=== PATIENT | male | born 1955 | race Caucasian/White ===

== ENCOUNTER 2023-06-20 14:07 | Outpatient (AMB) | payer OTHER, SELFPAY ==
--- NOTE | 2023-06-20 14:20 | MHC.PC.OV ---
Vital Signs 06/20/23 14:22 Height 5 ft 6 in Weight 183 lb 2 oz BMI 29.6 BP 160/78 H Blood Pressure Location Rt brachial Position Sitting Pulse 71 Pulse Source Pulse Oximeter Pulse Oximetry (%) 98 Oxygen Delivery Method Room Air Intake Visit Reasons: NPV-medication Allergies No Known Allergies [No Known Allergies*] Allergy (Unverified 06/20/23 14:24) Medication List - Last Reconciled 06/20/23 [facility] amlodipine-benazepril 5-20 mg 1 cap PO DAILY atorvastatin 20 mg PO BEDTIME elderberry fruit mg PO hydrochlorothiazide 12.5 mg PO DAILY metoprolol succinate ER 25 mg PO DAILY 30 days Tobacco use date assessed: 06/20/23 Fall risk assessment: No Falls in past year Last assessed Fall Risk: 06/20/23 Dental Screening Dental Screen Date: 06/20/23 Did you have a dental visit in the last 12 months?: No Did you have a dental problem in the last 6 months where you did not have access to dental care?: No Was dental information given to patient?: No HPI NPV-medication HPI Details Pt is here to establish care. HTN: Blood pressure is managed with amlodipine-benazepril 5-20mg and hydrochlorothiazide 12.5mg. Pt reports that his blood pressure at home is in the 140s-160s/80s. Will add metoprolol 25mg. Dyslipidemia: On atorvastatin 20mg. Will order labs. ? inferior infarct on EKG. Will order echo and stress test. Denies chest pain, shortness of breath, headache, dizziness, and blurred vision. [facility] Medical History (Updated 06/20/23 @ 15:06 by DAGOBERTO Ch-FIFI) Dyslipidemia Social History Housing: House Patient Tobacco Use Status: Never used Tobacco e-Cigarette/Vaping Use: Never Used Second Hand Smoke Exposure: Yes service: No Current occupational status: employed Current occupation: [employer] Current occupational exposures/hazards: Yes Cognitive needs: No Hearing needs: No Vision needs: No Questionnaire PHQ-9 Over the last 2 weeks, how often have you been bothered by any of the following problems? 1. Little interest or pleasure in doing things: not at all 2. Feeling down, depressed, or hopeless: not at all 3. Trouble falling or staying asleep, or sleeping too much: not at all 4. Feeling tired or having little energy: not at all 5. Poor appetite or overeating: not at all 6. Feeling bad about yourself - or that you are a failure or have let yourself or your family down: not at all 7. Trouble concentrating on things, such as reading the newspaper or watching television: not at all 8. Moving or speaking so slowly that other people could have noticed. Or the opposite - being so fidgety or restless that you have been moving around a lot more than usual: not at all 9. Thoughts that you would be better off or of hurting yourself in some way: not at all Total score: 0 Source: Developed by Drs. John Major, Sue Villagomez, Sang Barry and colleagues, with an educational lorena from [employer] Thrive Questionnaire Date Thrive assessed: 06/20/23 I am a: Patient What is your living situation today?: I have a steady place to live Within the past 12 months, did the food you bought not last and you didn't have the money to get more?: Never true Within the past 12 months, did you worry whether your food would run out before you got money to buy more?: Never true Do you have trouble paying for medicines?: No Do you have trouble getting transportation to medical appointments?: No Do you have trouble paying your heating and electricity bill?: No Do you have trouble taking care of your child, family member or friend?: No Do you have trouble with day-to-day activities such as bathing, preparing meals, shopping, managing finances, etc.?: No Are you currently unemployed and looking for a job?: No Are you interested in more education?: No AUDIT C Alcohol Use Questionnaire (AUDIT-C) 1. How often do you have a drink containing alcohol?: Never Total Score: 0 JAY-7 AMB Questionnaire JAY-7 Date JAY - 7 assessed: 06/20/23 Feeling nervous, anxious, or on edge: 0 = Not at all Not being able to stop or control worryin = Not at all Worrying too much about different things: 0 = Not at all Trouble relaxin = Not at all Being so restless that it is hard to sit still: 0 = Not at all Becoming easily annoyed or irritable: 0 = Not at all Feeling afraid as if something awful might happen: 0 = Not at all Total JAY-7 score (0-4 normal; 5-9 mild; 10-14 moderate; 15-21 severe): 0 Source: Developed by Drs. John Major, Sue Villagomez, Sang Barry and colleagues, with an educational lorena from [employer] Review of Systems Const Reports as per HPI Physical exam (Primary Care) Vital Signs: Last Vital Signs Pulse 71 06/20/23 14:22 BP 160/78 H 06/20/23 14:22 Pulse Ox 98 06/20/23 14:22 Oxygen Delivery Method Room Air 06/20/23 14:22 BMI result Body Mass Index 29.6 Tobacco/Smoking Status: Tobacco use Status Tobacco use date assessed 06/20/23 06/20/23 14:31 Patient Tobacco Use Status Never used Tobacco 06/20/23 14:31 e-Cigarette/Vaping Use Never Used 06/20/23 14:31 PHQ-9: PHQ-9 Score PHQ-9: Total score 0 06/20/23 14:43 Thrive Assessment: Date of Thrive Assessment Date Thrive assessed 06/20/23 06/20/23 14:37 Const General: cooperative Orientation/consciousness: patient oriented x3 Resp Effort & Inspection: normal respiratory effort Auscultation: clear to auscultation bilaterally Cardio Rate: regular rate Rhythm: regular rhythm Heart sounds: S1 normal heart sound present and S2 normal heart sound present Neuro General: patient oriented x3 Extrem Right lower extremity: no edema Left lower extremity: no edema Psych Appearance: grossly normal Mental Status: mental status grossly normal Speech and movement: Normal speech and movement present Affect: normal affect Attitude: cooperative Thought process: Normal thought process present Thought content: Normal thought content present Insight: Good insight present (Psych) Judgement: Good judgement present (Psych) Assessment and Plan Assessment & Plan (1) HTN (hypertension): Code(s): I10 - Essential (primary) hypertension Plan: Starting metoprolol, labs ordered (2) Dyslipidemia: Code(s): E78.5 - Hyperlipidemia, unspecified Plan: Labs ordered (3) Abnormal EKG: Code(s): R94.31 - Abnormal electrocardiogram [ECG] [EKG] Plan The patient agreed to the use of a medical health researcher for this encounter. Scribed for [facility] [place] by Mini Yung medical health researcher, on 06/20/2023 at 14:40 EST Orders: Orders Complete Blood Count Auto Diff Today E78.5 - Hyperlipidemia, unspecified, I10 - Essential (primary) hypertension TSH reflex Free T4 Today E78.5 - Hyperlipidemia, unspecified, I10 - Essential (primary) hypertension Lipid Panel Today E78.5 - Hyperlipidemia, unspecified, I10 - Essential (primary) hypertension CA echo transthoracic complete Today R94.31 - Abnormal electrocardiogram [ECG] [EKG] CA stress test Today E78.5 - Hyperlipidemia, unspecified, I10 - Essential (primary) hypertension, R94.31 - Abnormal electrocardiogram [ECG] [EKG] Comprehensive [place]. Panel Fast Today E78.5 - Hyperlipidemia, unspecified, I10 - Essential (primary) hypertension UA CC w/rflx Micro + Cult Today E78.5 - Hyperlipidemia, unspecified, I10 - Essential (primary) hypertension NM cardiolite stress test Today E78.5 - Hyperlipidemia, unspecified, I10 - Essential (primary) hypertension, R94.31 - Abnormal electrocardiogram [ECG] [EKG] Medications: New metoprolol succinate ER 25 mg PO DAILY 30 tabs 3RF 30 days Coding Level of Care Code New Pt Level 3 (78848) Diagnoses HTN (hypertension) I10 Dyslipidemia E78.5 Abnormal EKG R94.31
[2023-06-20 14:22] VITALS: BP 160/78; PULSE 71; O2SAT 98; BMI 29.6
== END 2023-06-20 16:44 | disposition home or self-care (01) ==
PROVIDERS: PCP Internal Medicine; Visit Provider Nurse Practitioner Family
DX: I10 Essential (primary) hypertension (principal); E78.5 Hyperlipidemia, unspecified; R94.31 Abnormal electrocardiogram [ECG] [EKG]
CPT/HCPCS: 99203

== ENCOUNTER 2023-06-29 08:04 | Outpatient (REF) | payer MEDICARE, SELFPAY ==
[2023-06-29 11:25] LABS: MANUAL DIFF FLAG NO
[2023-06-29 11:38] LABS: Appearance Urine Clear; Color Urine Yellow; Glucose Urine UA Negative (Negative); Leukocyte Esterase Urine Negative (Negative); Nitrite Urine Negative (Negative); PH 6.5 (5.0-9.0); Urine Blood Negative (Negative); Urine Ketones Negative (Negative); Urine Protein Negative (Neg-Trace)
[2023-06-29 11:45] LABS: Basophils Percent Auto 0.5 % (0-2); Eosinophils Absolute Auto 0.4 X10*3/uL (0.0-0.4); Eosinophils Percent Auto 5.9 % (0-4); Hematocrit 39.5 % (42.0-52.0); Hemoglobin 13.4 g/dl (14.0-18.0); Imm Gran Abs Auto 0.01 X10*3/uL (0.00-0.03); Imm Gran Pct Auto 0.2 % (0.0-0.4); Lymphocytes Absolute Auto 2.4 X10*3/uL (1.2-4.9); Lymphocytes Percent Auto 37.8 % (20-40); Mean Corpuscular HGB Conc 33.9 g/dl (31.0-36.0); Mean Corpuscular Hemoglobin 30.7 pg (27.0-33.0); Mean Corpuscular Volume 90.4 fL (80.0-98.0); Mean Platelet Volume 10.3 fL (9.4-12.4); Monocytes Absolute Auto 0.5 X10*3/uL (0.1-1.2); Monocytes Percent Auto 7.4 % (2-11); Neutrophils Percent Auto 48.2 % (45-73); Platelet Count 214 X10*3/uL (160-400); Red Blood Count 4.37 X10*6/uL (4.60-5.80); Red Cell Distribution Width 13.8 % (11.0-16.0); White Blood Count 6.2 X10*3/uL (4.8-10.8)
[2023-06-29 11:54] LABS: Alanine Aminotransferase 25 U/L (0-40); Albumin Level 4.4 g/dL (3.5-5.0); Alkaline Phosphatase 79 U/L (39-117); Anion Gap 14 (12-20); Aspartate Amino Transferase 21 U/L (5-37); Bilirubin Total 0.7 mg/dL (0.0-1.0); Blood Urea Nitrogen 16 mg/dL (9-16); Calcium 10.1 mg/dL (8.4-10.2); Carbon Dioxide 24 mmol/L (22-29); Chloride 105 mmol/L (96-108); Cholesterol 126 mg/dL (<200); Estimated Glomerular Filt Rate > 60; Glucose Fasting 106 mg/dL (60-99); HDL Cholesterol 29 mg/dL (>40); LDL Cholesterol Calculated 80 mg/dL (<100); Potassium 3.3 mmol/L (3.3-5.1); Sodium 140 mmol/L (135-145); Total Protein 7.2 g/dL (6.5-8.0); Triglycerides 87 mg/dL (<150)
[2023-06-29 12:23] LABS: TSH reflex Free T4 1.14 uIU/mL (0.32-4.0)
== END 2023-06-29 08:05 | disposition home or self-care (01) ==
LOC: HO.HMGCLDS 08:04
PROVIDERS: PCP Nurse Practitioner Family; Visit Provider Nurse Practitioner Family
DX: I10 Essential (primary) hypertension (principal); E78.5 Hyperlipidemia, unspecified
CPT/HCPCS: 36415; 80053; 80061; 81003; 84443; 85025

== ENCOUNTER → 2023-07-27 09:28 | Outpatient (REF) | payer OTHER, SELFPAY ==
--- NOTE | 2023-07-27 09:30 | CA_ITS ---
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 The calculated ejection fraction is 61% by biplane method. - No obvious valvular pathology seen on this study. Findings Left Ventricle Normal left ventricular cavity size. The left ventricular systolic function is normal. The calculated ejection fraction is 61% by biplane method. There is no evidence of regional wall motion abnormalities. Diastolic function is normal for age. There is mild septal asymmetric hypertrophy. LV peak GLS 22.1%. Right Ventricle Normal right ventricular cavity size and systolic function. Atria Both atria are normal in size. Aortic Valve There is a normal trileaflet aortic valve. There is no aortic valve stenosis. There is no aortic valve regurgitation. Mitral Valve The mitral valve appears normal. There is trace mitral valve regurgitation. There is no mitral valve stenosis. Pulmonic Valve There is trace to mild pulmonic valve regurgitation. Tricuspid Valve Normal tricuspid valve structure. There is mild tricuspid valve regurgitation. There is no evidence of pulmonary hypertension. Great Vessels The asc aorta is normal in size. Small plaque is seen in the sino tubular ridge. Venous The inferior vena cava is normal in size and collapses greater than 50% with inspiration. Pericardium/Pleural There is no evidence of pericardial effusion. Prior Study Comparison No significant change compared to prior study dated: 01/12/2004. Recommendations, Care & Conclusions No obvious valvular pathology seen on this study. Measurements 2D Linear Measurements IVSd: 1.05 0.6-0.9/0.6-1.0 cm LVIDd: 5.32 3.9-5.3/4.2-5.9 cm LVIDd Index: 2.76 2.4-3.2/2.2-3.1 cm/m2 LVIDs: 2.97 2.0-3.6 cm LVPWd: 0.82 0.7-1.1 cm LA Diam: 4.10 2.7-3.8/3.0-4.0 cm LAIDs Index: 2.12 1.5-2.3 cm/m2 LV Mass: 229.49 67-162/88-224 g LV Mass Index: 118.91 43-95/49-115 g/m2 LVOT Diam: 2.10 3.0+(-)1.3 cm 2D Systolic Function EF 4C: 60.40 >55% EF 2C: 60.60 >55% EF BiP: 60.80 >55% Mitral Valve MV Pk E: 0.72 MV PK A: 0.56 MV Decel Time: 267.00 E/A: 1.30 E'Lateral: 7.94 E'Medial: 6.09 E/E' Med: 11.80 E/E' Lat: 9.10 PHT: 78.00 MVA PHT: 2.82 Decel [place]: 2.70 Aortic Valve AoV Pk Jesus: 1.23 AoV Mn Jesus: 0.81 AoV VTI: 0.28 AoV Pk Grad: 6.00 Aov Mn Grad: 3.00 DONNIE Cont.VTI: 2.53 LVOT LVOT Pk Jesus: 0.93 LVOT Mn Jesus: 0.55 LVOT VTI: 0.20 LVOT Pk Grad: 3.00 LVOT Mn Grad: 2.00 LVOT Diam: 2.10 LVOT Area: 3.46 Diastolic Function MV Pk E: 0.72 MV Pk A: 0.56 E/A: 1.30 E'Medial: 6.09 E/E' Med: 11.80 E' Laterial: 7.94 E/E' Lat: 9.10 Right Ventricle TAPSE (mm): 27.40 TVS' Jesus: 16.60 Tricuspid Valve TR Pk Jesus: 2.53 TR Pk Grad: 26.00 RA Press: 3.00 RVSP: 29.00 Great Vessels Aorta Sinus of Valsalva: 3.31 2.0-3.5 cm Ao Asc: 3.40 2.1-3.4 cm Updated in Other Vendor System with Status of Final Danny Camp MD electronically signed on 07/28/2023 11:54:12 AM with status of Final
== END ==
LOC: HO.CARD 09:28
PROVIDERS: PCP Nurse Practitioner Family; Visit Provider Nurse Practitioner Family
DX: R94.31 Abnormal electrocardiogram [ECG] [EKG] (principal)
CPT/HCPCS: 93306; 93356

== ENCOUNTER → 2023-07-27 09:30 | Outpatient (BNV) | payer OTHER, SELFPAY | PROVIDERS: PCP Nurse Practitioner Family; Visit Provider Internal Medicine | DX: I36.1 Nonrheumatic tricuspid (valve) insufficiency (principal); R94.31 Abnormal electrocardiogram [ECG] [EKG] | CPT/HCPCS: 93306 ==

== ENCOUNTER → 2023-08-17 08:14 | Outpatient (REF) | payer OTHER, SELFPAY ==
--- NOTE | ~2023-08-17 | NM_ITS ---
Exercise Myocardial perfusion study Indication: Abnormal EKG to evaluate for myocardial ischemia Technique: The patient was brought in for an exercise perfusion study on 08/17/2023. Patient performed exercise as per Eric protocol and was injected 30 mCi of sestamibi was given intravenously one target HR was achieved. Images were obtained using the SPECT gamma camera interlaced with the gating device. Images were obtained in supine position. Resting perfusion study was performed on 08/24/2023. Patient was administered 30 mCi of sestamibi intravenously at rest. Images were then obtained in supine position. Images obtained with and without CT attenuation. Total DLP 90 mGy-cm. Images were processed with the software and compared side to side in short axis, horizontal long axis and vertical long axis views. Findings: The stress perfusion study showed non attenuated images show mildly reduced uptake in the basal and mid inferior wall of the LV myocardium. Remainder of the LV myocardium is normally perfused. Attenuation corrected images show mildly to moderately reduced uptake in the apex of the LV myocardium. The gated study shows normal LV systolic function with calculated LVEF of 61%. LV cavity is normal in size. The gated study shows normal systolic wall thickening and contraction of all segments. There is no transient ischemic dilation. Resting study shows no change in perfusion pattern compared to stress perfusion study. Gating at rest reveals normal systolic wall motion with ejection fraction at 61%. The findings are consistent with no clear reversible defect suggestive of ischemia. Likely normal myocardial perfusion. NM/NM cardiolite stress test Impression: 1. Normal myocardial perfusion 2. Gated LVEF is 61% 3. Transient ischemic dilatation not present Stress EKG is suggestive of ischemia
--- NOTE | 2023-08-17 08:16 | CA_ITS ---
Acquisition Time: 2023-08-17 08:27:44 Total Exercise Time: 00:04:02 Test Indications: ABN EKG Medications: SEE H Protocol: YANNI Max HR: 139 BPM 92% of Pred: 151 BPM Max BP: 190/060 mmHG Max Work Load: 5.8 METS Exercise stress test exercise 4 min 2 sec of Yanni protocol achieving 90% MPHR, with 5/10 chest pain, mild SOB, vetricular ectopy, with resting HTN, with EKG changes from baseline in leads 2, 3, aVF, V4-V6. EKGs returned to baseline with rest. Chest pain resolved with rest. Nuclear images. Test reviewed with Dr. Camp. Referred By: Wagner Gibbs Overread By: Seema Gonzalez
== END ==
LOC: HO.CARD 08:14
PROVIDERS: PCP Nurse Practitioner Family; Visit Provider Nurse Practitioner Family
DX: I10 Essential (primary) hypertension (principal); E78.5 Hyperlipidemia, unspecified; R94.31 Abnormal electrocardiogram [ECG] [EKG]
CPT/HCPCS: 78452; 93017; A9500

== ENCOUNTER → 2023-08-17 08:16 | Outpatient (BNV) | payer OTHER, SELFPAY | PROVIDERS: PCP Nurse Practitioner Family; Visit Provider Nurse Practitioner | DX: R07.9 Chest pain, unspecified (principal); R06.02 Shortness of breath; R94.31 Abnormal electrocardiogram [ECG] [EKG] | CPT/HCPCS: 78452; 93016; 93018 ==

== ENCOUNTER 2023-10-08 13:50 | Outpatient (AMB) | payer OTHER, SELFPAY ==
--- NOTE | 2023-10-08 13:57 | MHC.PC.OV ---
Vital Signs 10/08/23 13:59 Height 5 ft 6 in Weight 184 lb 6 oz BMI 29.8 BP 140/72 H Blood Pressure Location Rt brachial Position Sitting Pulse 67 Pulse Source Pulse Oximeter Pulse Oximetry (%) 97 Oxygen Delivery Method Room Air Intake Visit Reasons: 3 month fu Intake Note: Pt is here for a 3 month follow up for HTN Allergies No Known Allergies [No Known Allergies*] Allergy (Unverified 10/08/23 14:00) Medication List - Last Re[facility]iled [facility] amlodipine-benazepril 5-20 mg 1 cap PO DAILY atorvastatin 20 mg PO BEDTIME elderberry fruit mg PO hydrochlorothiazide 12.5 mg PO DAILY metoprolol succinate ER 50 mg PO DAILY 90 days Tobacco use date assessed: 10/08/23 Fall risk assessment: No Falls in past year Last assessed Fall Risk: 10/08/23 Dental Screening Dental Screen Date: 10/08/23 Did you have a dental visit in the last 12 months?: No Did you have a dental problem in the last 6 months where you did not have access to dental care?: No Was dental information given to patient?: No HPI 3 month fu HPI Details HTN: Blood pressure is managed with amlodipine-benazepril 5-20mg, hydrochlorothiazide 12.5mg, and metoprolol 25mg. Pt reports that his blood pressure at home has been in the 140s/80s-90s. Will increase metoprolol from 25mg to 50mg. Denies chest pain, shortness of breath, headache, dizziness, and blurred vision. Pt was referred to cardiology due to a possibly abnormal stress test but has not heard anything. Will reach out to their office. [facility] Medical History BPH (benign prostatic hyperplasia) Dyslipidemia Social History Housing: House Patient Tobacco Use Status: Never used Tobacco e-Cigarette/Vaping Use: Never Used Second Hand Smoke Exposure: Yes service: No Current occupational status: employed Current occupation: [employer] Current occupational exposures/hazards: Yes Cognitive needs: No Hearing needs: No Vision needs: No Questionnaire PHQ-9 Over the last 2 weeks, how often have you been bothered by any of the following problems? 1. Little interest or pleasure in doing things: not at all 2. Feeling down, depressed, or hopeless: not at all 3. Trouble falling or staying asleep, or sleeping too much: not at all 4. Feeling tired or having little energy: not at all 5. Poor appetite or overeating: not at all 6. Feeling bad about yourself - or that you are a failure or have let yourself or your family down: not at all 7. Trouble concentrating on things, such as reading the newspaper or watching television: not at all 8. Moving or speaking so slowly that other people could have noticed. Or the opposite - being so fidgety or restless that you have been moving around a lot more than usual: not at all 9. Thoughts that you would be better off or of hurting yourself in some way: not at all Total score: 0 Source: Developed by Drs. John Major, Sue Villagomez, Sang Barry and colleagues, with an educational lorena from [employer]. Thrive Questionnaire Date Thrive assessed: 10/08/23 I am a: Patient What is your living situation today?: I have a steady place to live Within the past 12 months, did the food you bought not last and you didn't have the money to get more?: Never true Within the past 12 months, did you worry whether your food would run out before you got money to buy more?: Never true Do you have trouble paying for medicines?: No Do you have trouble getting transportation to medical appointments?: No Do you have trouble paying your heating and electricity bill?: No Do you have trouble taking care of your child, family member or friend?: No Do you have trouble with day-to-day activities such as bathing, preparing meals, shopping, managing finances, etc.?: No Are you currently unemployed and looking for a job?: No Are you interested in more education?: No THRIVE Score: 0 AUDIT C Alcohol Use Questionnaire (AUDIT-C) 1. How often do you have a drink containing alcohol?: Never Total Score: 0 JAY-7 AMB Questionnaire JAY-7 Date JAY - 7 assessed: 10/08/23 Feeling nervous, anxious, or on edge: 0 = Not at all Not being able to stop or control worryin = Not at all Worrying too much about different things: 0 = Not at all Trouble relaxin = Not at all Being so restless that it is hard to sit still: 0 = Not at all Becoming easily annoyed or irritable: 0 = Not at all Feeling afraid as if something awful might happen: 0 = Not at all Total JAY-7 score (0-4 normal; 5-9 mild; 10-14 moderate; 15-21 severe): 0 Source: Developed by Drs. John Major, Sue Villagomez, Sang Barry and colleagues, with an educational lorena from [employer]. Review of Systems Const Reports as per HPI Physical exam (Primary Care) Vital Signs: Last Vital Signs Pulse 67 10/08/23 13:59 BP 140/72 H 10/08/23 13:59 Pulse Ox 97 10/08/23 13:59 Oxygen Delivery Method Room Air 10/08/23 13:59 BMI result Body Mass Index 29.8 Tobacco/Smoking Status: Tobacco use Status Tobacco use date assessed 10/08/23 10/08/23 14:03 Patient Tobacco Use Status Never used Tobacco 10/08/23 13:57 e-Cigarette/Vaping Use Never Used 10/08/23 13:57 Thrive Assessment: Date of Thrive Assessment Date Thrive assessed 06/20/23 10/08/23 13:57 Const General: cooperative Orientation/consciousness: patient oriented x3 Resp Effort & Inspection: normal respiratory effort Auscultation: clear to auscultation bilaterally Cardio Rate: regular rate Rhythm: regular rhythm Heart sounds: S1 normal heart sound present, S2 normal heart sound present and Murmur heart sound present systolic (faint) Neuro General: patient oriented x3 Psych Appearance: grossly normal Mental Status: mental status grossly normal Speech and movement: Normal speech and movement present Affect: normal affect Attitude: cooperative Thought process: Normal thought process present Thought content: Normal thought content present Insight: Good insight present (Psych) Judgement: Good judgement present (Psych) Assessment and Plan Assessment & Plan (1) HTN (hypertension): Code(s): I10 - Essential (primary) hypertension Plan: Increasing metoprolol from 25mg to 50mg (2) Abnormal stress test: Code(s): R94.39 - Abnormal result of other cardiovascular function study Plan: Will reach out to cardiology regarding referral Plan The patient agreed to the use of a bilingual medical receptionist for this encounter. Scribed for [employer] [place] by Mini Yung bilingual medical receptionist, on 10/08/2023 at 14:10 EST. Orders: Orders Complete Blood Count Auto Diff Today I10 - Essential (primary) hypertension TSH reflex Free T4 Today I10 - Essential (primary) hypertension UA CC w/rflx Micro + Cult Today I10 - Essential (primary) hypertension Lipid Panel Today I10 - Essential (primary) hypertension Comprehensive [place]. Panel Fast Today I10 - Essential (primary) hypertension Medications: New atorvastatin 20 mg PO BEDTIME 90 tabs 1RF hydrochlorothiazide 12.5 mg PO DAILY 90 tabs 0RF amlodipine-benazepril 5-20 mg 1 cap PO DAILY 90 caps 1RF Changed From metoprolol succinate ER 25 mg PO DAILY 30 days 30 tabs 3RF To metoprolol succinate ER 50 mg PO DAILY 30 days 30 tabs 3RF From metoprolol succinate ER 50 mg PO DAILY 30 days 30 tabs 3RF To metoprolol succinate ER 50 mg PO DAILY 90 days 90 tabs 1RF Coding Level of Care Code Est Pt Level 3 (72955) Diagnoses HTN (hypertension) I10 Abnormal stress test R94.39
[2023-10-08 13:59] VITALS: BP 140/72; PULSE 67; O2SAT 97; BMI 29.8
== END 2023-10-08 16:03 | disposition home or self-care (01) ==
PROVIDERS: PCP Nurse Practitioner Family; Visit Provider Nurse Practitioner Family
DX: I10 Essential (primary) hypertension (principal); R94.39 Abnormal result of other cardiovascular function study
CPT/HCPCS: 99213

== ENCOUNTER 2023-10-23 08:56 | Outpatient (AMB) | payer OTHER, SELFPAY ==
--- NOTE | 2023-10-23 09:00 | MHC.OFFVIS ---
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 He does not have any history of coronary artery disease or myocardial infarction or cardiomyopathy. It seems that he does have hypertension takes medications for the same. Also takes statins. Within limits of her activity, he does not have any chest pain or shortness of breath or in fact any cardiac symptoms at all. He states he still works. Recently had a stress test and that showed abnormal EKG portion and hence he has been referred here. [facility], [facility] Medical History (Updated 10/23/23 @ 09:14 by Danny Camp MD) BPH (benign prostatic hyperplasia) Dyslipidemia Surgical History (Updated 10/23/23 @ 09:02 by Conchita Jacobsen) Hx of appendectomy Family History (Updated 10/23/23 @ 09:03 by Conchita Jacobsen) Mother Cancer Father Heart problem Sister Heart problem Social History Housing: House Patient Tobacco Use Status: Never used Tobacco e-Cigarette/Vaping Use: Never Used Second Hand Smoke Exposure: Yes service: No Current occupational status: employed Current occupation: [employer] Current occupational exposures/hazards: Yes Cognitive needs: No Hearing needs: No Vision needs: No Review of Systems Const Denies chills, Denies daytime sleepiness, Denies fatigue, Denies fever(s), Denies frequent falls, Denies night sweats, Denies snoring, Denies weakness, Denies weight gain and Denies weight loss Eyes Denies loss of vision ENT Denies dizziness and Denies hearing loss Card Denies chest pain, Denies chest pain with activity, Denies syncope, Denies rapid heart rate, Denies edema, Denies claudication, Denies leg edema, Denies lightheadedness, Denies palpitations, Denies dyspnea, Denies dyspnea on exertion and Denies orthopnea Resp Denies cough, Denies excessive phlegm production, Denies dyspnea, Denies dyspnea on exertion, Denies snoring and Denies wheezing GI Denies abdominal pain, Denies hematochezia, Denies change in bowel habits, Denies change in stool character, Denies heartburn, Denies nausea and Denies vomiting Denies hematuria, Denies dysuria and Denies urinary frequency Musc Denies arthralgias, Denies muscle weakness, Denies numbness and Denies tingling Skin/Breast Denies nail changes and Denies rash Neuro Denies Abnormal speech present, Denies dizziness, Denies syncope, Denies frequent falls, Denies loss of vision, Denies memory loss, Denies numbness, Denies tingling and Denies weakness Psych Denies depression and Denies memory loss Endo Denies fatigue and Denies palpitations Aller/Immun Denies wheezing Physical Exam Vital Signs: Last Vital Signs Pulse 63 10/23/23 09:01 BP 140/60 H 10/23/23 09:01 BMI result Body Mass Index 29.5 Const General: comfortable and no acute distress Orientation/consciousness: patient oriented x3 HEENT Other: Unremarkable Head: Yes normal to inspection Neck Neck: Yes normal visual inspection Chest Chest palpation & inspection: normal inspection of the chest Resp Auscultation: clear to auscultation bilaterally Cardio Palpation: normal PMI Heart sounds: S1 normal heart sound present, S2 normal heart sound present, no gallops, no murmurs and no rubs GI Palpation (GI): Soft to palpation Back/Spine/Pelvis Other: unremarkable Skin General skin exam: no rashes or lesions noted Neuro General: patient oriented x3 Speech: No Abnormal speech present Extrem General: Yes normal to inspection Psych Mental Status: mental status grossly normal Assessment & Plan Assessment & Plan (1) Abnormal stress test: Code(s): R94.39 - Abnormal result of other cardiovascular function study (2) Precordial chest pain: Code(s): R07.2 - Precordial pain (3) HTN (hypertension): Code(s): I10 - Essential (primary) hypertension Plan In the baseline EKG, underlying rhythm is sinus at 64/Min; can not exclude old inferior infarct but could be from body habitus; mild ST depression inferior as well as anterolateral leads. In the exercise stress test, he exercised for 5.8 Mets on Eric protocol and reached target heart rate. There is reported chest pain but patient states it was because EKG lead was pulling and not from exercising. There is clearly evidence of ST depression and additionally, some ST elevation AVR. Perfusion component is however, normal. Echocardiogram with LVEF of 61%. Normal peak global longitudinal strain and otherwise unremarkable. Overall, no clear-cut baseline symptoms, abnormal looking EKG component of stress test with possible chest pain, but normal perfusion component. We will proceed with coronary CTA for further evaluation. In the interim, advised to avoid strenuous physical activity. He understands. Otherwise, with regard to blood pressure, still seems to be on the higher side. However, he states meds were just adjusted through his own PCP. Hence can follow and make further changes as needed. Otherwise, follow-up once CTA is completed. Orders: Orders Basic Metabolic Panel Today R07.2 - Precordial pain, R94.39 - Abnormal result of other cardiovascular function study CT Cardiac Coronary Angio Today I25.10 - Atherosclerotic heart disease of [place] coronary artery without angina pectoris, R94.39 - Abnormal result of other cardiovascular function study Coding Level of Care Code New Pt Level 4 (82090) Diagnoses Abnormal stress test R94.39 Precordial chest pain R07.2 HTN (hypertension) I10
[2023-10-23 09:01] VITALS: BP 140/60; PULSE 63; BMI 29.5
== END 2023-10-23 10:03 | disposition home or self-care (01) ==
PROVIDERS: PCP Nurse Practitioner Family; Visit Provider Internal Medicine
DX: R94.39 Abnormal result of other cardiovascular function study (principal); R07.2 Precordial pain; I10 Essential (primary) hypertension
CPT/HCPCS: 99204

== ENCOUNTER → 2023-10-23 08:56 | Outpatient (BNVA) | payer OTHER, SELFPAY | PROVIDERS: PCP Nurse Practitioner Family; Visit Provider Internal Medicine ==

== ENCOUNTER 2023-11-01 08:55 | Outpatient (REF) | payer MEDICARE, SELFPAY ==
[2023-11-01 11:23] LABS: MANUAL DIFF FLAG NO
[2023-11-01 11:37] LABS: Appearance Urine Turbid; Color Urine Yellow; Glucose Urine UA Negative (Negative); Leukocyte Esterase Urine Negative (Negative); Nitrite Urine Negative (Negative); Urine Blood Negative (Negative); Urine Ketones Negative (Negative); Urine Protein Negative (Neg-Trace)
[2023-11-01 11:38] LABS: Basophils Percent Auto 0.5 % (0-2); Eosinophils Absolute Auto 0.4 X10*3/uL (0.0-0.4); Eosinophils Percent Auto 5.4 % (0-4); Hematocrit 43.4 % (42.0-52.0); Hemoglobin 14.8 g/dl (14.0-18.0); Imm Gran Abs Auto 0.03 X10*3/uL (0.00-0.03); Imm Gran Pct Auto 0.4 % (0.0-0.4); Lymphocytes Absolute Auto 2.6 X10*3/uL (1.2-4.9); Lymphocytes Percent Auto 33.6 % (20-40); Mean Corpuscular HGB Conc 34.1 g/dl (31.0-36.0); Mean Corpuscular Hemoglobin 30.5 pg (27.0-33.0); Mean Corpuscular Volume 89.5 fL (80.0-98.0); Mean Platelet Volume 10.5 fL (9.4-12.4); Monocytes Absolute Auto 0.5 X10*3/uL (0.1-1.2); Monocytes Percent Auto 6.3 % (2-11); Neutrophils Absolute Auto 4.2 x10*3/uL (2.0-8.3); Neutrophils Percent Auto 53.8 % (45-73); Platelet Count 244 X10*3/uL (160-400); Red Blood Count 4.85 X10*6/uL (4.60-5.80); White Blood Count 7.8 X10*3/uL (4.8-10.8)
[2023-11-01 12:05] LABS: Alanine Aminotransferase 26 U/L (0-40); Albumin Level 4.4 g/dL (3.5-5.0); Alkaline Phosphatase 75 U/L (39-117); Anion Gap 14 (12-20); Aspartate Amino Transferase 24 U/L (5-37); Bilirubin Total 0.7 mg/dL (0.0-1.0); Blood Urea Nitrogen 20 mg/dL (9-16); Calcium 9.9 mg/dL (8.4-10.2); Carbon Dioxide 27 mmol/L (22-29); Chloride 107 mmol/L (96-108); Cholesterol 151 mg/dL (<200); Estimated Glomerular Filt Rate > 60; Glucose Fasting 107 mg/dL (60-99); Glucose Random 105 mg/dL (60-115); HDL Cholesterol 32 mg/dL (>40); LDL Cholesterol Calculated 88 mg/dL (<100); Potassium 3.6 mmol/L (3.3-5.1); Sodium 144 mmol/L (135-145); Total Protein 7.3 g/dL (6.5-8.0); Triglycerides 158 mg/dL (<150)
[2023-11-01 12:07] LABS: TSH reflex Free T4 1.31 uIU/mL (0.32-4.0)
== END 2023-11-01 08:56 | disposition home or self-care (01) ==
LOC: HO.HMGCLDS 08:55
PROVIDERS: PCP Nurse Practitioner Family; Referring Provider Internal Medicine; Visit Provider Nurse Practitioner Family
DX: R07.2 Precordial pain (principal); I10 Essential (primary) hypertension; R94.39 Abnormal result of other cardiovascular function study
CPT/HCPCS: 36415; 80048; 80053; 80061; 81003; 84443; 85025

== ENCOUNTER 2023-11-10 08:56 | Outpatient (REF) | payer MEDICARE, SELFPAY ==
[2023-11-10 12:36] LABS: Prostate Specific Antigen Scr 3.35 ng/mL (<0.05-4.0)
== END 2023-11-10 08:57 | disposition home or self-care (01) ==
LOC: HO.HMGCLDS 08:56
PROVIDERS: PCP Nurse Practitioner Family; Visit Provider Nurse Practitioner Family
DX: Z12.5 Encounter for screening for malignant neoplasm of prostate (principal)
CPT/HCPCS: 36415; 84153

== ENCOUNTER 2023-11-27 13:37 | Outpatient (AMB) | payer MEDICARE, SELFPAY ==
--- NOTE | 2023-11-27 13:38 | MHC.OFFVIS ---
Intake Vital Signs 11/27/23 13:40 Height 5 ft 6 in Weight 187 lb 6.287 oz BMI 30.2 BP 138/60 Blood Pressure Location Lt brachial Position Sitting Pulse 61 Intake Visit Reasons: follow up Intake Note: follow up Pelt Dropper Required: No Accompanied by: Self / Same As Patient Allergies No Known Allergies [No Known Allergies*] Allergy (Verified 11/27/23 13:41) Medication List - Last Reconciled 11/27/23 by Danny Camp MD amlodipine-benazepril 5-20 mg 1 cap PO DAILY aspirin (Adult Low Dose Aspirin) 81 mg PO DAILY atorvastatin 80 mg PO BEDTIME elderberry fruit mg PO hydrochlorothiazide 12.5 mg PO DAILY metoprolol succinate ER 50 mg PO DAILY 90 days HPI HPI Comments History of Present Illness Details Nii returns for follow-up. He recently had an abnormal stress test and that led to the consultation. Following this, we ordered a coronary CTA which has been completed. Patient himself does not have any clear-cut anginal-type symptoms or in fact anything cardiac sounding. No history of any coronary disease myocardial infarction or cardiomyopathy. He does have hypertension and dyslipidemia. Otherwise, seems to be doing fine. [facility] Medical History (Updated 11/27/23 @ 15:32 by Danny Camp MD) Atherosclerotic cardiovascular disease BPH (benign prostatic hyperplasia) Dyslipidemia Surgical History Hx of appendectomy Family History Mother Cancer Father Heart problem Sister Heart problem Social History Housing: House Patient Tobacco Use Status: Never used Tobacco e-Cigarette/Vaping Use: Never Used Second Hand Smoke Exposure: Yes service: No Current occupational status: employed Current occupation: [employer] Current occupational exposures/hazards: Yes Cognitive needs: No Hearing needs: No Vision needs: No Review of Systems Const Denies weakness ENT Denies dizziness Card Denies chest pain, Denies chest pain with activity, Denies syncope, Denies rapid heart rate, Denies pedal edema, Denies edema, Denies leg edema, Denies lightheadedness, Denies palpitations, Denies dyspnea, Denies dyspnea on exertion and Denies orthopnea Resp Denies cough, Denies dyspnea and Denies dyspnea on exertion GI Denies hematochezia and Denies change in stool character Musc Denies abnormal gait, Denies muscle cramps, Denies muscle weakness, Denies numbness, Denies radiating pain into limb and Denies tingling Neuro Denies abnormal gait, Denies dizziness, Denies syncope, Denies numbness, Denies tingling and Denies weakness Endo Denies palpitations Physical Exam Vital Signs: Last Vital Signs Pulse 61 11/27/23 13:40 BP 138/60 11/27/23 13:40 BMI result Body Mass Index 30.2 Const General: comfortable and no acute distress Orientation/consciousness: patient oriented x3 HEENT Other: Unremarkable Head: Yes normal to inspection Neck Neck: Yes normal visual inspection Chest Chest palpation & inspection: normal inspection of the chest Resp Auscultation: clear to auscultation bilaterally Cardio Palpation: normal PMI Heart sounds: S1 normal heart sound present, S2 normal heart sound present, no gallops, no murmurs and no rubs GI Palpation (GI): Soft to palpation Back/Spine/Pelvis Other: unremarkable Skin General skin exam: no rashes or lesions noted Neuro General: patient oriented x3 Extrem General: Yes normal to inspection Psych Mental Status: mental status grossly normal Assessment & Plan Assessment & Plan (1) Atherosclerotic cardiovascular disease: Code(s): I25.10 - Atherosclerotic heart disease of [place] coronary artery without angina pectoris Plan Cardiac studies reviewed. In the baseline EKG, underlying rhythm is sinus at 64/Min; can not exclude old inferior infarct but could be from body habitus; mild ST depression inferior as well as anterolateral leads. In the exercise stress test, he exercised for 5.8 Mets on Eric protocol and reached target heart rate. There is reported chest pain but patient states it was because EKG lead was pulling and not from exercising. There is clearly evidence of ST depression and additionally, some ST elevation AVR. Perfusion component is however, normal. Echocardiogram with LVEF of 61%. Normal peak global longitudinal strain and otherwise unremarkable. In the coronary CTA, there is moderate proximal LAD stenosis which was also significant by FFR analysis. There is mild mid RCA stenosis. Findings discussed with patient. Clinically really does not have any clear-cut angina. He states he is completely active with no limitations. Hence we will treat this conservatively at this time. Continue aspirin, beta-blockers and high-dose statins. As LDL is still on the higher side, we can add Zetia. Blood pressure management with with current regimen. Follow-up in 3-4 months. If any interim concerns like chest pain, advised him to contact us. In that case, he will need cardiac catheterization and probable LAD PCI. Total time spent including review of data, counseling, documentation, coordination of care-32 minutes. Medications: New ezetimibe (Zetia) 10 mg PO DAILY 90 tabs 3RF 90 days Coding Level of Care Code Est Pt Level 4 (51253) Diagnoses Atherosclerotic cardiovascular disease I25.10
[2023-11-27 13:40] VITALS: BP 138/60; PULSE 61; BMI 30.2
== END 2023-11-27 14:01 | disposition home or self-care (01) ==
PROVIDERS: PCP Nurse Practitioner Family; Visit Provider Internal Medicine
DX: I25.10 Atherosclerotic heart disease of native coronary artery without angina pectoris (principal)
CPT/HCPCS: 99214

== ENCOUNTER → 2023-11-27 13:37 | Outpatient (BNVA) | payer MEDICARE, SELFPAY | PROVIDERS: PCP Nurse Practitioner Family; Visit Provider Internal Medicine | DX: I25.10 Atherosclerotic heart disease of native coronary artery without angina pectoris (principal); I10 Essential (primary) hypertension; E78.5 Hyperlipidemia, unspecified | CPT/HCPCS: 99212 ==

== ENCOUNTER 2024-02-19 15:13 | Outpatient (AMB) | payer MEDICARE, SELFPAY ==
--- NOTE | 2024-02-19 15:18 | MHC.OFFWIV ---
Intake Vital Signs 02/19/24 15:19 Height 5 ft 6 in Weight 181 lb BMI 29.2 BP 118/70 Blood Pressure Location Rt brachial Position Sitting Pulse 72 Pulse Source Pulse Oximeter Temp 98.0 F Temp Source Oral Pulse Oximetry (%) 98 Oxygen Delivery Method Room Air Intake Visit Reasons: Poison [place] Intake Note: pt here c/o contact dermatitis due to Poison oak Patient Tobacco Use Status: Never used Tobacco Allergies No Known Allergies [No Known Allergies*] Allergy (Verified 02/19/24 15:20) Do you need a note to return to daycare/school/sports/work: No HPI HPI Comments History of Present Illness Details Patient is a 68-year-old male in today for sick visit. Patient reports that he was in contact with his sister's poison oak in her backyard 10 days prior to this visit. States that he has developed rash on his bilateral forearms and bilateral lower extremities. Initially in the lesions were weeping clear discharge, however most are scabbed over. He has been using [id number] calamine lotion with mild relief. States that his primary concern is the itchiness, and burning feeling With lesions are located. He has history of the same thing happened 4 Years prior. Denies any fever chills. denies chest pain shortness a breath [facility] Medical History (Updated 02/19/24 @ 16:18 by DAGOBERTO Berry) Atherosclerotic cardiovascular disease BPH (benign prostatic hyperplasia) Dyslipidemia Surgical History Hx of appendectomy Family History Mother Cancer Father Heart problem Sister Heart problem Social History Housing: House Patient Tobacco Use Status: Never used Tobacco e-Cigarette/Vaping Use: Never Used Second Hand Smoke Exposure: Yes service: No Current occupational status: employed Current occupation: [employer] Current occupational exposures/hazards: Yes Cognitive needs: No Hearing needs: No Vision needs: No Review of Systems Const All systems reviewed & are unremarkable except as noted in HPI and below Denies chills and Denies fever(s) Physical Exam Vital Signs: Last Vital Signs Temp 98.0 F 02/19/24 15:19 Pulse 72 02/19/24 15:19 BP 118/70 02/19/24 15:19 Pulse Ox 98 02/19/24 15:19 Oxygen Delivery Method Room Air 02/19/24 15:19 BMI result Body Mass Index 29.2 Const Other: Appearance: Alert.? Oriented X3.? No acute distress.? Head: Normocephalic. Respiratory: No respiratory distress.? ? Abdomen: Soft and nontender.? Skin: Small, scabbed over lesions on bilateral upper extremities and bilateral lower extremities. Clear discharge from lesions on right forearms. Right lower extremity has erythema surrounded lesions on front of tibia. Extremities: No lower extremity edema.? Neuro: Oriented X 3.? No motor deficit.? No sensory deficit. CN 2-12 intact Assessment & Plan Assessment & Plan (1) Contact dermatitis due to poison oak: Comment: will give patient triamcinolone, prednisone taper, and doxycycline. Patient has been instructed on side effects of these medications and how to take them properly. States he understands. Code(s): L23.7 - Allergic contact dermatitis due to plants, except food Plan: Take your medications as prescribed. If you were prescribed antibiotics today, it is important that you take your medication to their entirety, do not skip any doses, do not finish them early. Follow-up with your primary care provider this week. Present to the emergency department with new or worsening symptoms. Such as fevers, chills, chest pain, shortness of breath, nausea, vomiting, dizziness, headache, vision changes, lethargy In case of emergency call 911 Plan Follow-up and 3 days if no improvement. Medications: New prednisone 10 mg orally Take 4 tablets for four days, Take 2 tablets for four days, Take 1 tablet for four days.; see taper instructions 28 tabs 0RF doxycycline hyclate 100 mg PO BID 14 tabs 0RF triamcinolone acetonide 0.1% 1 appl topical BID 15 grams 0RF Coding Level of Care Code Est Pt Level 3 (48162) Diagnoses Contact dermatitis due to poison oak L23.7 Time Spent (min) 25
[2024-02-19 15:19] VITALS: BP 118/70; PULSE 72; TEMP 36.7; O2SAT 98; BMI 29.2
== END 2024-02-19 17:10 | disposition home or self-care (01) ==
PROVIDERS: PCP Nurse Practitioner Family; Visit Provider Nurse Practitioner Primary Care
DX: L23.7 Allergic contact dermatitis due to plants, except food (principal)
CPT/HCPCS: 99213

== ENCOUNTER 2024-02-22 13:26 | Outpatient (AMB) | payer MEDICARE, SELFPAY ==
[2024-02-22 13:43] VITALS: BP 118/60; PULSE 53; BMI 29.2
--- NOTE | 2024-02-22 13:43 | A.OFFVIS_ITS ---
Vital Signs 02/22/24 13:43 Height 5 ft 6 in Weight 180 lb 12.465 oz BMI 29.2 BP 118/60 Blood Pressure Location Lt brachial Position Sitting Pulse 53 Pulse Source Pulse Oximeter Intake Visit Reasons: fu CTA results (rs) Allergies No Known Allergies [No Known Allergies*] Allergy (Verified 02/22/24 13:51) Medication List - Last Reconciled 02/22/24 by Seema Gonzalez NP amlodipine-benazepril 5-20 mg 1 cap PO DAILY aspirin (Adult Low Dose Aspirin) 81 mg PO DAILY atorvastatin 80 mg PO BEDTIME doxycycline hyclate 100 mg PO BID elderberry fruit mg PO ezetimibe (Zetia) 10 mg PO DAILY 90 days hydrochlorothiazide 12.5 mg PO DAILY metoprolol succinate ER 50 mg PO DAILY 90 days prednisone 10 mg orally Take 4 tablets for four days, Take 2 tablets for four days, Take 1 tablet for four days.; see taper instructions triamcinolone acetonide 0.1% 1 appl topical BID HPI Comments Details: 68-year-old male presents today for a follow-up. He had last seen Dr. Camp in November and discussed his CTA results. He reports he is doing well without anginal symptoms. 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 Denies any chest pains, swelling, shortness of breath, or orthopnea. History of hypertension and hyperlipidemia. Reports compliance with his medications. [facility] Medical History Atherosclerotic cardiovascular disease BPH (benign prostatic hyperplasia) Dyslipidemia Surgical History Hx of appendectomy Family History Mother Cancer Father Heart problem Sister Heart problem Social History Housing: House Patient Tobacco Use Status: Never used Tobacco e-Cigarette/Vaping Use: Never Used Second Hand Smoke Exposure: Yes service: No Current occupational status: employed Current occupation: [employer] Current occupational exposures/hazards: Yes Cognitive needs: No Hearing needs: No Vision needs: No Review of Systems Const Denies weakness ENT Denies dizziness Card Denies chest pain, Denies chest pain with activity, Denies syncope, Denies rapid heart rate, Denies pedal edema, Denies edema, Denies leg edema, Denies lightheadedness, Denies palpitations, Denies dyspnea, Denies dyspnea on exertion and Denies orthopnea Resp Denies cough, Denies dyspnea and Denies dyspnea on exertion GI Denies hematochezia and Denies change in stool character Musc Denies abnormal gait, Denies muscle cramps, Denies muscle weakness, Denies numbness, Denies radiating pain into limb and Denies tingling Neuro Denies abnormal gait, Denies dizziness, Denies syncope, Denies numbness, Denies tingling and Denies weakness Endo Denies palpitations Physical Exam Vital Signs: Last Vital Signs Pulse 53 02/22/24 13:43 BP 118/60 02/22/24 13:43 BMI result Body Mass Index 29.2 Const General: healthy appearing and no acute distress Orientation/consciousness: patient oriented x3 HEENT Head: Yes normal to inspection Eyes General: appearance normal, both eyes and all related structures Neck Neck: Yes normal visual inspection Chest Chest palpation & inspection: normal inspection of the chest Resp Effort & Inspection: normal respiratory effort Auscultation: clear to auscultation bilaterally Cardio Jugular venous distension: no JVD Palpation: normal PMI Rate: regular rate Rhythm: regular rhythm Heart sounds: S1 normal heart sound present, S2 normal heart sound present, no click, no gallops, no murmurs and no rubs GI Inspection: Yes normal to inspection Palpation (GI): Soft to palpation Skin General skin exam: no rashes or lesions noted Neuro General: patient oriented x3 Extrem General: Yes normal to inspection Psych Appearance: grossly normal Assessment & Plan Assessment & Plan (1) Atherosclerotic cardiovascular disease: Code(s): I25.10 - Atherosclerotic heart disease of [place] coronary artery without angina pectoris Category: Medical (2) Dyslipidemia: Code(s): E78.5 - Hyperlipidemia, unspecified Category: Medical (3) HTN (hypertension): Code(s): I10 - Essential (primary) hypertension Category: Medical Plan Within range today. Continue statins, hydrochlorothiazide, metoprolol succinate, zetia, and aspirin.. Repeat lipid panels. Last LDL 11/01/23 was 88. Goal less than 70. Report any anginal symptoms, Anginal symptoms reviewed. Heart healthy lifestyle reviewed. Blood pressure within range Orders: Orders Lipid Panel 02/22/24 I25.10 - Atherosclerotic heart disease of [place] coronary artery without angina pectoris Basic Metabolic Panel 02/22/24 I25.10 - Atherosclerotic heart disease of [place] coronary artery without angina pectoris Coding Level of Care Code Est Pt Level 3 (25466) Diagnoses Atherosclerotic cardiovascular disease I25.10 Dyslipidemia E78.5 HTN (hypertension) I10
== END 2024-02-22 14:02 | disposition home or self-care (01) ==
PROVIDERS: PCP Nurse Practitioner Family; Visit Provider Nurse Practitioner
DX: I25.10 Atherosclerotic heart disease of native coronary artery without angina pectoris (principal); E78.5 Hyperlipidemia, unspecified; I10 Essential (primary) hypertension
CPT/HCPCS: 99213

== ENCOUNTER → 2024-02-22 13:26 | Outpatient (BNVA) | payer MEDICARE, SELFPAY | PROVIDERS: PCP Nurse Practitioner Family; Visit Provider Nurse Practitioner | DX: I25.10 Atherosclerotic heart disease of native coronary artery without angina pectoris (principal); E78.5 Hyperlipidemia, unspecified; I10 Essential (primary) hypertension; Z79.82 Long term (current) use of aspirin; Z79.899 Other long term (current) drug therapy | CPT/HCPCS: 99212 ==

== ENCOUNTER 2024-05-26 14:18 | Outpatient (AMB) | payer MEDICARE, SELFPAY ==
[2024-05-26 14:49] VITALS: BP 120/60; PULSE 53; BMI 27.8
--- NOTE | 2024-05-26 14:49 | MHC.OFFVIS ---
Vital Signs 05/26/24 14:49 Height 5 ft 6 in Weight 171 lb 15.369 oz BMI 27.8 BP 120/60 Blood Pressure Location Lt brachial Position Sitting Pulse 53 Pulse Source Monitor Intake Visit Reasons: 3m follow up Allergies No Known Allergies [No Known Allergies*] Allergy (Verified 02/22/24 13:51) Medication List - Last Reconciled 05/26/24 by Danny Camp MD amlodipine-benazepril 5-20 mg 1 cap PO DAILY aspirin (Adult Low Dose Aspirin) 81 mg PO DAILY atorvastatin 80 mg PO BEDTIME ezetimibe (Zetia) 10 mg PO DAILY 90 days hydrochlorothiazide 12.5 mg PO DAILY metoprolol succinate ER 50 mg PO DAILY 90 days HPI Comments Details: Nii returns for follow-up regarding coronary artery disease. Originally, he was seen regarding an abnormal stress test. That led to coronary CTA that shows hemodynamically significant LAD disease. However, he was not having any clear-cut chest pains and hence he was managed conservatively. Overall, he states he generally feels okay. No clear-cut symptoms. 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 Has hypertension and dyslipidemia at baseline. [facility] Medical History Atherosclerotic cardiovascular disease BPH (benign prostatic hyperplasia) Dyslipidemia Surgical History Hx of appendectomy Family History Mother Cancer Father Heart problem Sister Heart problem Social History Housing: House Patient Tobacco Use Status: Never used Tobacco e-Cigarette/Vaping Use: Never Used Second Hand Smoke Exposure: Yes service: No Current occupational status: employed Current occupation: [employer] Current occupational exposures/hazards: Yes Cognitive needs: No Hearing needs: No Vision needs: No Review of Systems Const Denies weakness ENT Denies dizziness Card Denies chest pain, Denies chest pain with activity, Denies syncope, Denies rapid heart rate, Denies pedal edema, Denies edema, Denies leg edema, Denies lightheadedness, Denies palpitations, Denies dyspnea, Denies dyspnea on exertion and Denies orthopnea Resp Denies cough, Denies dyspnea and Denies dyspnea on exertion GI Denies hematochezia and Denies change in stool character Musc Denies abnormal gait, Denies muscle cramps, Denies muscle weakness, Denies numbness, Denies radiating pain into limb and Denies tingling Neuro Denies abnormal gait, Denies dizziness, Denies syncope, Denies numbness, Denies tingling and Denies weakness Endo Denies palpitations Physical Exam Vital Signs: Last Vital Signs Pulse 53 05/26/24 14:49 BP 120/60 05/26/24 14:49 BMI result Body Mass Index 27.8 Const General: comfortable and no acute distress Orientation/consciousness: patient oriented x3 HEENT Other: Unremarkable Head: Yes normal to inspection Neck Neck: Yes normal visual inspection Chest Chest palpation & inspection: normal inspection of the chest Resp Auscultation: clear to auscultation bilaterally Cardio Palpation: normal PMI Heart sounds: S1 normal heart sound present, S2 normal heart sound present, no gallops, no murmurs and no rubs GI Palpation (GI): Soft to palpation Back/Spine/Pelvis Other: unremarkable Skin General skin exam: no rashes or lesions noted Neuro General: patient oriented x3 Extrem General: Yes normal to inspection Psych Mental Status: mental status grossly normal Office Procedures EKG Details: EKG shows underlying sinus bradycardia at 53/Min; nonspecific ST-T changes; [place] [id number], Complete Assessment & Plan Assessment & Plan (1) Atherosclerotic cardiovascular disease: Code(s): I25.10 - Atherosclerotic heart disease of [place] coronary artery without angina pectoris Category: Medical Plan Cardiac studies reviewed. Baseline EKG shows slight nonspecific ST-T change in the inferior as well as anterolateral leads. In the exercise stress test, he exercised for 5.8 METS on Eric protocol and reached target heart rate. There is reported chest pain but patient states it was because EKG lead was pulling and not from exercising. There is clearly evidence of ST depression and additionally, some ST elevation AVR. Perfusion component is however reported normal. Echocardiogram with LVEF of 61%. Normal peak global longitudinal strain and otherwise unremarkable. In the coronary CTA, there is moderate proximal LAD stenosis which was also significant by FFR analysis. There is mild mid RCA stenosis. Findings discussed with patient. Overall, he denies any clear-cut chest pains/angina but it seems he did have chest pain during the ETT portion. We discussed about diagnostic catheterization, indications, procedural aspects, alternatives. He is agreeable to proceed. May schedule this in the near future. In the interim, continue aspirin, beta-blockers, high-dose statins, Zetia. Blood pressure seems stable. Follow-up after the procedure. Orders: Orders Complete Blood Count no Diff Today R07.2 - Precordial pain Prothrombin Time INR Today R07.2 - Precordial pain Cardiac Cath LT Diagnostic Today I25.10 - Atherosclerotic heart disease of [place] coronary artery without angina pectoris, R07.2 - Precordial pain Basic Metabolic Panel Today R07.2 - Precordial pain Lipid Panel Today E78.5 - Hyperlipidemia, unspecified Liver Panel Today E78.5 - Hyperlipidemia, unspecified, I25.10 - Atherosclerotic heart disease of [place] coronary artery without angina pectoris Coding Level of Care Code Est Pt Level 4 (98958) Diagnoses Atherosclerotic cardiovascular disease I25.10 CPT Codes EKG - CPT: 80381-[id number], Complete ([id number])
== END 2024-05-26 15:42 | disposition home or self-care (01) ==
PROVIDERS: PCP Nurse Practitioner Family; Visit Provider Internal Medicine
DX: I25.10 Atherosclerotic heart disease of native coronary artery without angina pectoris (principal)
CPT/HCPCS: 93010; 99214

== ENCOUNTER → 2024-05-26 14:18 | Outpatient (BNVA) | payer MEDICARE, SELFPAY | PROVIDERS: PCP Nurse Practitioner Family; Visit Provider Internal Medicine | DX: I25.10 Atherosclerotic heart disease of native coronary artery without angina pectoris (principal); R07.2 Precordial pain; E78.5 Hyperlipidemia, unspecified | CPT/HCPCS: 93005; 99212 ==

== ENCOUNTER 2024-05-30 07:34 | Outpatient (REF) | payer MEDICARE, SELFPAY ==
[2024-05-30 08:13] LABS: Hematocrit 39.7 % (42.0-52.0); Hemoglobin 13.8 g/dl (14.0-18.0); Mean Corpuscular HGB Conc 34.8 g/dl (31.0-36.0); Mean Corpuscular Hemoglobin 31.5 pg (27.0-33.0); Mean Corpuscular Volume 90.6 fL (80.0-98.0); Mean Platelet Volume 9.8 fL (9.4-12.4); Platelet Count 271 X10*3/uL (160-400); Red Blood Count 4.38 X10*6/uL (4.60-5.80); Red Cell Distribution Width 13.2 % (11.0-16.0); White Blood Count 7.2 X10*3/uL (4.8-10.8)
[2024-05-30 08:22] LABS: Prothrombin Time 11.4 SEC (10.9-12.4)
[2024-05-30 08:37] LABS: Alanine Aminotransferase 41 U/L (0-40); Albumin Level 4.3 g/dL (3.5-5.0); Alkaline Phosphatase 94 U/L (39-117); Anion Gap 10 (12-20); Aspartate Amino Transferase 29 U/L (5-37); Bilirubin Direct 0.3 mg/dL (0.0-0.5); Bilirubin Total 0.8 mg/dL (0.0-1.0); Blood Urea Nitrogen 25 mg/dL (9-16); Calcium 9.7 mg/dL (8.4-10.2); Carbon Dioxide 27 mmol/L (22-29); Chloride 109 mmol/L (96-108); Cholesterol 81 mg/dL (<200); Estimated Glomerular Filt Rate > 60; Glucose Random 119 mg/dL (60-115); HDL Cholesterol 31 mg/dL (>40); LDL Cholesterol Calculated 39 mg/dL (<100); Potassium 3.8 mmol/L (3.3-5.1); Sodium 142 mmol/L (135-145); Total Protein 6.9 g/dL (6.5-8.0); Triglycerides 57 mg/dL (<150)
== END 2024-05-30 07:35 | disposition home or self-care (01) ==
LOC: HO.LAB 07:34
PROVIDERS: PCP Nurse Practitioner Family; Visit Provider Internal Medicine
DX: R07.2 Precordial pain (principal); E78.5 Hyperlipidemia, unspecified; I25.10 Atherosclerotic heart disease of native coronary artery without angina pectoris
CPT/HCPCS: 36415; 80048; 80061; 80076; 85027; 85610

== ENCOUNTER → 2024-06-17 23:59 | Outpatient (BNV) | payer MEDICARE, SELFPAY | PROVIDERS: PCP Nurse Practitioner Family; Visit Provider Internal Medicine Cardiovascular Disease | DX: R93.1 Abnormal findings on diagnostic imaging of heart and coronary circulation (principal); I25.10 Atherosclerotic heart disease of native coronary artery without angina pectoris | CPT/HCPCS: 92928; 92978; 93458; 99152 ==

== ENCOUNTER 2024-07-03 13:39 | Outpatient (AMB) | payer MEDICARE, SELFPAY ==
[2024-07-03 13:59] VITALS: BP 118/52; PULSE 64; BMI 28.5
--- NOTE | 2024-07-03 13:59 | A.OFFVIS_ITS ---
Vital Signs 07/03/24 13:59 Height 5 ft 6 in Weight 176 lb 12.972 oz BMI 28.5 BP 118/52 L Pulse 64 Pulse Source Pulse Oximeter Intake Visit Reasons: 2 wk s/p cath HS Manager Intelligence Required: No Allergies No Known Allergies [No Known Allergies*] Allergy (Verified 07/03/24 14:01) Medication List - Last Reconciled 07/03/24 by Nica Brantley NP-C amlodipine-benazepril 5-20 mg 1 cap PO DAILY aspirin (Adult Low Dose Aspirin) 81 mg PO DAILY atorvastatin 80 mg PO BEDTIME ezetimibe (Zetia) 10 mg PO DAILY 90 days hydrochlorothiazide 12.5 mg PO DAILY metoprolol succinate ER 25 mg PO DAILY ticagrelor (Brilinta) 90 mg PO BID HPI HPI 2 wk s/p cath HS: Details: Nii is a 68-year-old male past medical history of hypertension, hyperlipidemia who had abnormal stress test which led to a CTA of the coronary arteries which showed hemodynamically significant stenosis in the LAD. He underwent a cardiac catheterization had had stenting to the LAD. He now presents for follow-up. Today he reports he has been feeling well with no concerning symptoms. His right radial catheterization site feels good. No chest discomfort at rest or with activity. No shortness of breath, PND, orthopnea or edema. No lightheadedness, presyncope, syncope, falls. 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 Prior to his catheterization he tells me he did not have any concerning symptoms. He is taking his medications including aspirin and Brilinta as directed. No bleeding issues reported. [facility] Medical History Atherosclerotic cardiovascular disease BPH (benign prostatic hyperplasia) Dyslipidemia Surgical History (Updated 07/04/24 @ 08:34 by Nica Brantley NP-C) S/P coronary artery stent placement Hx of appendectomy Family History Mother Cancer Father Heart problem Sister Heart problem Social History Housing: House Patient Tobacco Use Status: Never used Tobacco e-Cigarette/Vaping Use: Never Used Second Hand Smoke Exposure: Yes service: No Current occupational status: employed Current occupation: [employer] Current occupational exposures/hazards: Yes Cognitive needs: No Hearing needs: No Vision needs: No Review of Systems Const All systems reviewed & are unremarkable except as noted in HPI and below ENT Denies dizziness Card Denies chest pain, Denies chest pain at rest, Denies chest pain with activity, Denies rapid heart rate, Denies pedal edema, Denies edema, Denies leg edema, Denies lightheadedness, Denies palpitations, Denies dyspnea, Denies dyspnea on exertion and Denies orthopnea Resp Denies cough, Denies dyspnea and Denies dyspnea on exertion GI Denies hematochezia and Denies change in stool character Musc Denies abnormal gait, Denies limited range of motion, Denies muscle cramps, Denies muscle weakness, Denies numbness, Denies radiating pain into limb, Denies stiffness and Denies tingling Neuro Denies abnormal gait, Denies dizziness, Denies numbness and Denies tingling Endo Denies palpitations Physical Exam Vital Signs: Last Vital Signs Pulse 64 07/03/24 13:59 BP 118/52 L 07/03/24 13:59 BMI result Body Mass Index 28.5 Const General: cooperative, healthy appearing, comfortable and no acute distress Orientation/consciousness: patient oriented x3 Neck Neck: Yes normal visual inspection Resp Effort & Inspection: normal respiratory effort Auscultation: clear to auscultation bilaterally, no crackles, no rales, no rhonchi and no wheezes Cardio Jugular venous distension: no JVD Rate: regular rate Rhythm: regular rhythm Heart sounds: S1 normal heart sound present, S2 normal heart sound present, no murmurs and no rubs Neuro General: patient oriented x3 Extrem Other: right radial cath site well healed, right hand assessment normal General: Yes normal to inspection, No no pedal edema and No calf tenderness Psych Appearance: grossly normal Mental Status: mental status grossly normal Speech and movement: Normal speech and movement present Assessment & Plan Assessment & Plan (1) Atherosclerotic cardiovascular disease: Code(s): I25.10 - Atherosclerotic heart disease of [place] coronary artery without angina pectoris Category: Medical Plan: Patient had abnormal EKG findings. He underwent an exercise nuclear stress test on 08/17/2023 with decreased exercise capacity, chest discomfort and EKG changes however nuclear imaging was normal. An echocardiogram was done 07/27/2023 with EF 61%, no regional wall motion abnormalities and no valve abnormalities. He underwent a CTA of the coronary arteries on 11/21/2023 showing at least moderate stenosis, 50-69% of the proximal LAD and mild stenosis in the mid RCA. FFR of the LAD showed hemodynamically significant stenosis. He then underwent cardiac catheterization 06/17/2024 showing proximal LAD 95% stenosis and JOAQUIN was placed. Today he reports he was not having any anginal symptoms prior to his procedure. He continues to feel well and denies chest discomfort or shortness of breath. Test findings reviewed with him in detail. Will have him continue aspirin indefinitely. Continue Brilinta uninterrupted for at least 1 year. Continue high-dose atorvastatin and Zetia with ideal LDL goal less than 70. Labs done 05/30/2024 showed LDL 39. Continue metoprolol, hydrochlorothiazide, amlodipine/benazepril for good blood pressure control. Blood pressure today 118/52. Diagnosis of coronary artery disease with coronary stent reviewed with him. Signs and symptoms of angina discussed. He declines cardiac rehab. Cardiology follow-up 3-4 months, sooner if needed. (2) S/P cardiac cath: Comment: 06/17/2024 showed left main normal, lad proximal 95% stenosis, left circumflex and RCA normal, ramus normal. JOAQUIN placed to the proximal LAD. Code(s): Z98.890 - Other specified postprocedural states Category: Surgical Plan: Right radial catheterization site well healed. (3) S/P coronary artery stent placement: Comment: severe proximal LAD stenosis, 06/17/2024 Code(s): Z95.5 - Presence of coronary angioplasty implant and graft Category: Surgical Plan: As above (4) HTN (hypertension): Code(s): I10 - Essential (primary) hypertension Category: Medical Plan: Blood pressure goal less than 130/85. Well controlled at this time. No med changes made (5) Dyslipidemia: Code(s): E78.5 - Hyperlipidemia, unspecified Category: Medical Plan: [place] LDL goal less than 70. Well controlled with high-dose atorvastatin and Zetia. No med change made Plan Time spent on chart review, documentation, interviewed assessment Coding Level of Care Code Est Pt Level 4 (43642) Complex EM visit Add On G2211 Diagnoses Atherosclerotic cardiovascular disease I25.10 S/P cardiac cath Z98.890 S/P coronary artery stent placement Z95.5 HTN (hypertension) I10 Dyslipidemia E78.5 Time Spent (min) 30
== END 2024-07-03 14:26 | disposition home or self-care (01) ==
PROVIDERS: PCP Nurse Practitioner Family; Visit Provider Nurse Practitioner Family
DX: I25.10 Atherosclerotic heart disease of native coronary artery without angina pectoris (principal); Z98.890 Other specified postprocedural states; Z95.5 Presence of coronary angioplasty implant and graft; I10 Essential (primary) hypertension; E78.5 Hyperlipidemia, unspecified
CPT/HCPCS: 99214; G2211

== ENCOUNTER → 2024-07-03 13:39 | Outpatient (BNVA) | payer MEDICARE, SELFPAY | PROVIDERS: PCP Nurse Practitioner Family; Visit Provider Nurse Practitioner Family | DX: I25.10 Atherosclerotic heart disease of native coronary artery without angina pectoris (principal); I10 Essential (primary) hypertension; E78.5 Hyperlipidemia, unspecified; Z95.5 Presence of coronary angioplasty implant and graft; Z98.890 Other specified postprocedural states | CPT/HCPCS: 99212 ==

== ENCOUNTER 2024-07-17 14:17 | Outpatient (AMB) | payer MEDICARE, SELFPAY ==
[2024-07-17 14:30] VITALS: BP 118/62; PULSE 78; O2SAT 98; BMI 28.9
--- NOTE | 2024-07-17 14:30 | MHC.PC.OV ---
Vital Signs 07/17/24 14:30 Height 5 ft 6 in Weight 179 lb 4 oz BMI 28.9 BP 118/62 Blood Pressure Location Lt brachial Position Sitting Pulse 78 Pulse Source Pulse Oximeter Pulse Oximetry (%) 98 Oxygen Delivery Method Room Air Intake Visit Reasons: Annual PE Allergies No Known Allergies [No Known Allergies*] Allergy (Verified 07/17/24 14:36) Medication List - Last Reconciled 07/17/24 by Luna Esparza NP amlodipine-benazepril 5-20 mg 1 cap PO DAILY aspirin (Adult Low Dose Aspirin) 81 mg PO DAILY atorvastatin 80 mg PO BEDTIME ezetimibe (Zetia) 10 mg PO DAILY 90 days hydrochlorothiazide 12.5 mg PO DAILY metoprolol succinate ER 25 mg PO DAILY ticagrelor (Brilinta) 90 mg PO BID Tobacco use date assessed: 07/17/24 Fall risk assessment: No Falls in past year Last assessed Fall Risk: 07/17/24 Dental Screening Dental Screen Date: 07/17/24 Did you have a dental visit in the last 12 months?: Yes Did you have a dental problem in the last 6 months where you did not have access to dental care?: No Was dental information given to patient?: Patient has dentist HPI HPI Comments History of Present Illness Details 68 y/o male patient who presents to the clinic for PE. Pt of [facility]. Pmhx significant for HTN, Dyslipidemia, ASVD, S/O Cardiac Stent placement 06/17/24. Presents with no concerns today. Medications reviewed. [facility] Medical History (Updated 07/17/24 @ 15:00 by Luna Esparza NP) Encounter for routine adult health examination without abnormal findings Atherosclerotic cardiovascular disease BPH (benign prostatic hyperplasia) Dyslipidemia Surgical History (Updated 07/04/24 @ 08:34 by TING Caceres) S/P coronary artery stent placement Hx of appendectomy Family History Mother Cancer Father Heart problem Sister Heart problem Social History Housing: House Patient Tobacco Use Status: Never used Tobacco e-Cigarette/Vaping Use: Never Used Second Hand Smoke Exposure: Yes service: No Current occupational status: employed Current occupation: [employer] Current occupational exposures/hazards: Yes Cognitive needs: No Hearing needs: No Vision needs: No Questionnaire Thrive Questionnaire Date Thrive assessed: 10/08/23 AUDIT C Alcohol Use Questionnaire (AUDIT-C) 1. How often do you have a drink containing alcohol?: Never 3. How often do you have six or more drinks on one occasion?: Never Total Score: 0 Score Reviewed/Action Taken: Yes JAY-7 AMB Questionnaire JAY-7 Date JAY - 7 assessed: 10/08/23 Source: Developed by Drs. John Major, Sue Villagomez, Sang Barry and colleagues, with an educational lorena from [employer]. Review of Systems Const All systems reviewed & are unremarkable except as noted in HPI and below Physical exam (Primary Care) Vital Signs: Last Vital Signs Pulse 78 07/17/24 14:30 BP 118/62 07/17/24 14:30 Pulse Ox 98 07/17/24 14:30 Oxygen Delivery Method Room Air 07/17/24 14:30 BMI result Body Mass Index 28.9 Tobacco/Smoking Status: Tobacco use Status Tobacco use date assessed 10/08/23 05/23/24 18:38 Patient Tobacco Use Status Never used Tobacco 05/23/24 18:38 e-Cigarette/Vaping Use Never Used 05/23/24 18:38 Thrive Assessment: Date of Thrive Assessment Date Thrive assessed 10/08/23 05/23/24 18:38 Const General: comfortable and no acute distress Orientation/consciousness: patient oriented x3 HENMT Head: Yes normocephalic Ears: external ears normal and TM's normal bilaterally General nose exam: Normal external nose present Face and sinus: Yes sinuses nontender and Yes face symmetric Mouth: moist mucous membranes Throat: Yes tonsils normal and Yes uvula midline Eyes Pupils: Equal, round and reactive pupils present EOM: EOMs intact bilaterally Direct Ophthalmoscopy: normal light reflex Neck Neck: Yes full ROM and Yes no lymphadenopathy Resp Effort & Inspection: normal respiratory effort and able to speak in complete sentences Auscultation: clear to auscultation bilaterally, no crackles, no rales, no rhonchi and no wheezes Cardio Heart sounds: S1 normal heart sound present and S2 normal heart sound present GI Palpation (GI): Soft to palpation, not firm, no guarding, not rigid, No hepatosplenomegaly present and Hernia present ventral Percussion: Yes normal to percussion Auscultation: normal bowel sounds Rectal Exam - Male: Yes deferred General: Yes no CVA tenderness Back/Spine/Pelvis Back: no CVA tenderness Skin General skin exam: no rashes or lesions noted Neuro General: patient oriented x3, gait normal and moves all extremities Cranial nerves: Yes Equal, round and reactive pupils present Motor exam (neuro): 5/5 motor strength present throughout Psych Speech and movement: Normal speech and movement present Coding Level of Care Code Est Pt Prev Care >65y(92840) Diagnoses Encounter for routine adult health examination without abnormal findings Z00.00 S/P coronary artery stent placement Z95.5 S/P cardiac cath Z98.890 Atherosclerotic cardiovascular disease I25.10 Dyslipidemia E78.5 Primary hypertension I10 Hypertension type: primary hypertension Assessment & Plan Assessment & Plan (1) Encounter for routine adult health examination without abnormal findings: Code(s): Z00.00 - Encounter for general adult medical examination without abnormal findings Category: Medical Plan: Ventral Hernia (2) S/P coronary artery stent placement: Comment: severe proximal LAD stenosis, 06/17/2024 Code(s): Z95.5 - Presence of coronary angioplasty implant and graft Category: Surgical Plan: Managed by Cardiology (3) S/P cardiac cath: Comment: 06/17/2024 showed left main normal, lad proximal 95% stenosis, left circumflex and RCA normal, ramus normal. JOAQUIN placed to the proximal LAD. Code(s): Z98.890 - Other specified postprocedural states Category: Surgical Plan: Managed by Cardiology. (4) Atherosclerotic cardiovascular disease: Code(s): I25.10 - Atherosclerotic heart disease of [place] coronary artery without angina pectoris Category: Medical Plan: Managed by Cardiology. (5) Dyslipidemia: Code(s): E78.5 - Hyperlipidemia, unspecified Category: Medical Plan: Well controlled on current regiement. (6) HTN (hypertension): Code(s): I10 - Essential (primary) hypertension Category: Medical Qualifiers: Hypertension type: primary hypertension Qualified Code(s): I10 - Essential (primary) hypertension Plan: Well controlled on current regiment.
== END 2024-07-17 14:56 | disposition home or self-care (01) ==
LOC: HO.HMCC 14:17
PROVIDERS: PCP Nurse Practitioner Family; Visit Provider Nurse Practitioner Family
DX: Z00.00 Encounter for general adult medical examination without abnormal findings (principal); Z95.5 Presence of coronary angioplasty implant and graft; Z98.890 Other specified postprocedural states; I25.10 Atherosclerotic heart disease of native coronary artery without angina pectoris; E78.5 Hyperlipidemia, unspecified; I10 Essential (primary) hypertension

== ENCOUNTER → 2024-07-17 14:17 | Outpatient (BNVA) | payer MEDICARE, SELFPAY | PROVIDERS: PCP Nurse Practitioner Family; Visit Provider Nurse Practitioner Family | DX: Z00.00 Encounter for general adult medical examination without abnormal findings (principal); I25.10 Atherosclerotic heart disease of native coronary artery without angina pectoris; I10 Essential (primary) hypertension; E78.5 Hyperlipidemia, unspecified; Z95.5 Presence of coronary angioplasty implant and graft; Z98.890 Other specified postprocedural states | CPT/HCPCS: 99397 ==

== ENCOUNTER 2024-11-06 10:17 | Outpatient (AMB) | payer MEDICARE, SELFPAY ==
[2024-11-06 10:27] VITALS: BP 120/52; PULSE 50; BMI 28.6
--- NOTE | 2024-11-06 10:27 | A.OFFVIS_ITS ---
Vital Signs 11/06/24 10:27 Height 5 ft 6 in Weight 177 lb 4.026 oz BMI 28.6 BP 120/52 L Blood Pressure Location Lt brachial Position Sitting Pulse 50 Pulse Source Pulse Oximeter Intake Visit Reasons: 4m follow up [employer] Required: No Allergies No Known Allergies [No Known Allergies*] Allergy (Verified 11/06/24 10:29) Medication List - Last Reconciled 11/06/24 by Nica Brantley, SIENA-C amlodipine-benazepril 5-20 mg 1 cap PO DAILY aspirin (Adult Low Dose Aspirin) 81 mg PO DAILY atorvastatin 80 mg PO BEDTIME ezetimibe (Zetia) 10 mg PO DAILY 90 days hydrochlorothiazide 12.5 mg PO DAILY metoprolol succinate ER 25 mg PO DAILY ticagrelor (Brilinta) 90 mg PO BID HPI HPI 4m follow up: Details: Nii is a 69-year-old male past medical history of hypertension, hyperlipidemia who had abnormal stress test which led to a CTA of the coronary arteries which showed hemodynamically significant stenosis in the LAD. He underwent a cardiac catheterization had had stenting to the LAD 06/17/2024. He now presents for follow-up. Today he reports he has been noticing lightheadedness after squatting. 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 No chest discomfort at rest or with activity. No shortness of breath, PND, orthopnea or edema. No lightheadedness, presyncope, syncope, falls. He is concerned about the high cost of Brilinta. No bleeding issues reported. [facility] Medical History Encounter for routine adult health examination without abnormal findings Atherosclerotic cardiovascular disease BPH (benign prostatic hyperplasia) Dyslipidemia Surgical History S/P coronary artery stent placement Hx of appendectomy Family History Mother Cancer Father Heart problem Sister Heart problem Social History Housing: House Patient Tobacco Use Status: Never used Tobacco e-Cigarette/Vaping Use: Never Used Second Hand Smoke Exposure: Yes service: No Current occupational status: employed Current occupation: [employer] Current occupational exposures/hazards: Yes Cognitive needs: No Hearing needs: No Vision needs: No Review of Systems Const All systems reviewed & are unremarkable except as noted in HPI and below ENT Reports dizziness Card Denies chest pain, Denies chest pain at rest, Denies chest pain with activity, Denies rapid heart rate, Denies pedal edema, Denies edema, Denies leg edema, Denies lightheadedness, Denies palpitations, Denies dyspnea, Denies dyspnea on exertion and Denies orthopnea Resp Denies cough, Denies dyspnea and Denies dyspnea on exertion GI Denies hematochezia and Denies change in stool character Musc Denies abnormal gait, Denies limited range of motion, Denies muscle cramps, Denies muscle weakness, Denies numbness, Denies radiating pain into limb, Denies stiffness and Denies tingling Neuro Denies abnormal gait, Reports dizziness, Denies numbness and Denies tingling Endo Denies palpitations Physical Exam Vital Signs: BMI result Body Mass Index 28.6 Const General: cooperative, healthy appearing, comfortable and no acute distress Orientation/consciousness: patient oriented x3 Neck Neck: Yes normal visual inspection Resp Effort & Inspection: normal respiratory effort Auscultation: clear to auscultation bilaterally, no rales, no rhonchi and no wheezes Cardio Rate: regular rate Rhythm: regular rhythm Heart sounds: S1 normal heart sound present, S2 normal heart sound present, no murmurs and no rubs Neuro General: patient oriented x3 Extrem General: Yes normal to inspection, No no pedal edema and No calf tenderness Psych Appearance: grossly normal Mental Status: mental status grossly normal Speech and movement: Normal speech and movement present Assessment & Plan Assessment & Plan (1) Atherosclerotic cardiovascular disease: Code(s): I25.10 - Atherosclerotic heart disease of [place] coronary artery without angina pectoris Category: Medical Plan: Patient had abnormal EKG findings which led to cardiac testing. He underwent an exercise nuclear stress test on 08/17/2023 with decreased exercise capacity, chest discomfort and EKG changes however nuclear imaging was normal. An echoca rdiogram was done 07/27/2023 with EF 61%, no regional wall motion abnormalities and no valve abnormalities. He underwent a CTA of the coronary arteries on 11/21/2023 showing at least moderate stenosis, 50-69% of the proximal LAD and mild stenosis in the mid RCA. FFR of the LAD showed hemodynamically significant stenosis. He then underwent cardiac catheterization 06/17/2024 showing proximal LAD 95% stenosis and JOAQUIN was placed. He has done well since then with no anginal symptoms. Will have him continue aspirin indefinitely. Continue Brilinta uninterrupted for at least 1 year - He has a 3 month supply of Brilinta but the co-pay is too high for him to afford. He will call us when he is closer to needing a refill and will plan to change him to Plavix at that time with a loading dose. Continue high-dose atorvastatin and Zetia with ideal LDL goal less than 70. Labs done 05/30/2024 showed LDL 39. Continue metoprolol, amlodipine/benazepril for good blood pressure control. Blood pressure today 120/52. He is noticing some lightheadedness when squatting then standing. Will have him put hydrochlorothiazide on hold to see if that helps this symptom. Also gave him a pair of compression stockings from our office stock to wear at work. Cardiology follow-up 4 months, sooner if needed. (2) S/P cardiac cath: Comment: 06/17/2024 showed left main normal, lad proximal 95% stenosis, left circumflex and RCA normal, ramus normal. JOAQUIN placed to the proximal LAD. Code(s): Z98.890 - Other specified postprocedural states Category: Surgical (3) S/P coronary artery stent placement: Comment: severe proximal LAD stenosis, 06/17/2024 Code(s): Z95.5 - Presence of coronary angioplasty implant and graft Category: Surgical (4) HTN (hypertension): Code(s): I10 - Essential (primary) hypertension Category: Medical Qualifiers: Hypertension type: primary hypertension Qualified Code(s): I10 - Essential (primary) hypertension Plan: Blood pressure goal less than 130/85. Well controlled at this time. He is experiencing some lightheadedness. Will stop hydrochlorothiazide. Continue all other meds. He will check blood pressures at home and restart hydrochlorothiazide if systolic is running greater than 140. (5) Dyslipidemia: Code(s): E78.5 - Hyperlipidemia, unspecified Category: Medical Plan: [place] LDL goal less than 70. Well controlled with high-dose atorvastatin and Zetia. No med change made Plan Time spent on chart review, documentation, interviewed assessment Medications: On Hold hydrochlorothiazide Hold Comment: Doctor's Order 12.5 mg PO DAILY 90 tabs 1RF Coding Level of Care Code Est Pt Level 4 (42571) Complex EM visit Add On G2211 Diagnoses Atherosclerotic cardiovascular disease I25.10 S/P cardiac cath Z98.890 S/P coronary artery stent placement Z95.5 Primary hypertension I10 Hypertension type: primary hypertension Dyslipidemia E78.5 Time Spent (min) 28
== END 2024-11-06 10:51 | disposition home or self-care (01) ==
PROVIDERS: PCP Nurse Practitioner Family; Visit Provider Nurse Practitioner Family
DX: I25.10 Atherosclerotic heart disease of native coronary artery without angina pectoris (principal); Z98.890 Other specified postprocedural states; Z95.5 Presence of coronary angioplasty implant and graft; I10 Essential (primary) hypertension; E78.5 Hyperlipidemia, unspecified
CPT/HCPCS: 99214; G2211

== ENCOUNTER → 2024-11-06 10:17 | Outpatient (BNVA) | payer MEDICARE, SELFPAY | PROVIDERS: PCP Nurse Practitioner Family; Visit Provider Nurse Practitioner Family | DX: I25.10 Atherosclerotic heart disease of native coronary artery without angina pectoris (principal); I10 Essential (primary) hypertension; E78.5 Hyperlipidemia, unspecified; Z95.5 Presence of coronary angioplasty implant and graft; Z98.890 Other specified postprocedural states | CPT/HCPCS: 99212 ==

== ENCOUNTER 2025-03-06 09:48 | Outpatient (AMB) | payer MEDICARE, SELFPAY ==
[2025-03-06 09:59] VITALS: BP 122/68; PULSE 65; BMI 28.8
--- NOTE | 2025-03-06 09:59 | MHC.OFFVIS ---
Vital Signs 03/06/25 09:59 Height 5 ft 6 in Weight 178 lb 9.191 oz BMI 28.8 BP 122/68 Blood Pressure Location Lt brachial Position Sitting Pulse 65 Pulse Source Pulse Oximeter Intake Visit Reasons: 4m follow up Allergies No Known Allergies (No Known Allergies*) Allergy (Verified 11/06/24 10:29) Medication List - Last Reconciled 03/06/25 by Nica Brantley, SYSTEMS TESTING LABORATORY TECHNICIAN-C amlodipine-benazepril 5-20 mg 1 cap PO DAILY aspirin (Adult Low Dose Aspirin) 81 mg PO DAILY atorvastatin 80 mg PO BEDTIME ezetimibe 10 mg PO DAILY hydrochlorothiazide 12.5 mg PO DAILY Held on 11/06/24. Instructions: Doctor's Order metoprolol succinate ER 25 mg PO DAILY ticagrelor (Brilinta) 90 mg PO BID HPI HPI 4m follow up: Details: Nii is a 69-year-old male with past medical history of hypertension, hyperlipidemia, coronary artery disease with LAD stent placed 06/17/2024 who presents for follow-up. Today he reports he has been doing very well since his last visit in October. He has not had any concerning chest discomfort at rest or with activity. He did have a brief ache in his left chest 3 days ago when the weather was extremely hot outside, which was unlike his prior angina. No shortness of breath, PND, orthopnea or edema. No heart palpitations, lightheadedness, presyncope, syncope. He reports good activity tolerance. Compliant with all medications. 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 No bleeding issues reported. [facility] Medical History Encounter for routine adult health examination without abnormal findings Atherosclerotic cardiovascular disease BPH (benign prostatic hyperplasia) Dyslipidemia Surgical History S/P coronary artery stent placement Hx of appendectomy Family History Mother Cancer Father Heart problem Sister Heart problem Social History Housing: House Patient Tobacco Use Status: Never used Tobacco e-Cigarette/Vaping Use: Never Used Second Hand Smoke Exposure: Yes service: No Current occupational status: employed Current occupation: [employer] Current occupational exposures/hazards: Yes Cognitive needs: No Hearing needs: No Vision needs: No Review of Systems Const All systems reviewed & are unremarkable except as noted in HPI and below Denies weakness ENT Denies dizziness Card Denies chest pain, Denies chest pain with activity, Denies syncope, Denies rapid heart rate, Denies pedal edema, Denies edema, Denies leg edema, Denies lightheadedness, Denies palpitations, Denies dyspnea, Denies dyspnea on exertion and Denies orthopnea Resp Denies cough, Denies dyspnea and Denies dyspnea on exertion GI Denies hematochezia and Denies change in stool character Musc Denies abnormal gait, Denies muscle cramps, Denies muscle weakness, Denies numbness, Denies radiating pain into limb and Denies tingling Neuro Denies abnormal gait, Denies dizziness, Denies syncope, Denies numbness, Denies tingling and Denies weakness Endo Denies palpitations Physical Exam Vital Signs: Last Vital Signs Pulse 65 03/06/25 09:59 BP 122/68 03/06/25 09:59 BMI result Body Mass Index 28.8 Const General: cooperative, healthy appearing, comfortable and no acute distress Orientation/consciousness: patient oriented x3 Neck Neck: Yes normal visual inspection Resp Effort & Inspection: normal respiratory effort Auscultation: clear to auscultation bilaterally, no rales, no rhonchi and no wheezes Cardio Rate: regular rate Rhythm: regular rhythm Heart sounds: S1 normal heart sound present, S2 normal heart sound present, no murmurs and no rubs Neuro General: patient oriented x3 Extrem General: Yes normal to inspection, No no pedal edema and No calf tenderness Psych Appearance: grossly normal Mental Status: mental status grossly normal Speech and movement: Normal speech and movement present Assessment & Plan Assessment & Plan (1) Atherosclerotic cardiovascular disease: Code(s): I25.10 - Atherosclerotic heart disease of [place] coronary artery without angina pectoris Category: Medical Plan: Cardiac testing for abnormal EKG: Exercise nuclear stress test on 08/17/2023 with decreased exercise capacity, chest discomfort and EKG changes however nuclear imaging was normal. An echocardiogram was done 07/27/2023 with EF 61%, no regional wall motion abnormalities and no valve abnormalities. CTA of the coronary arteries on 11/21/2023 showing at least moderate stenosis, 50-69% of the proximal LAD and mild stenosis in the mid RCA. FFR of the LAD showed hemodynamically significant stenosis. Cardiac catheterization 06/17/2024 showing proximal LAD 95% stenosis and JOAQUIN was placed. He has done well since then with no anginal symptoms. Cntinue aspirin indefinitely. Continue Brilinta uninterrupted for at least 1 year. Continue high-dose atorvastatin and Zetia with ideal LDL goal less than 70. Labs done 05/30/2024 showed LDL 39. Continue metoprolol, amlodipine/benazepril for good blood pressure control. Blood pressure today 122/68. Signs and symptoms of angina reviewed. Cardiology follow-up 4 months, sooner if needed. (2) S/P cardiac cath: Comment: 06/17/2024 showed left main normal, lad proximal 95% stenosis, left circumflex and RCA normal, ramus normal. JOAQUIN placed to the proximal LAD. Code(s): Z98.890 - Other specified postprocedural states Category: Surgical (3) S/P coronary artery stent placement: Comment: severe proximal LAD stenosis, 06/17/2024 Code(s): Z95.5 - Presence of coronary angioplasty implant and graft Category: Surgical (4) HTN (hypertension): Code(s): I10 - Essential (primary) hypertension Category: Medical Qualifiers: Hypertension type: primary hypertension Qualified Code(s): I10 - Essential (primary) hypertension Plan: Blood pressure goal less than 130/80. Well controlled at this time. Continue metoprolol, amlodipine/benazepril. (5) Dyslipidemia: Code(s): E78.5 - Hyperlipidemia, unspecified Category: Medical Plan: [place] LDL goal less than 70. Labs done 05/30/2024 showed LDL 39. Well controlled with high-dose atorvastatin and Zetia. No med change made Plan I discussed with the patient the continuation of his current medication regimen, including the plan to discontinue Brilinta in June. We reviewed the importance of monitoring for new symptoms such as chest pain or shortness of breath and maintaining his current level of physical activity. A follow-up appointment was scheduled for June to reassess his condition and medication plan. Patient Instructions: - Continue taking aspirin, atorvastatin, metoprolol, and Brilinta until June. - Stay active and monitor for any new symptoms like chest pain or shortness of breath. - Attend follow-up appointment in June. Patient was informed and verbally consented to the use of an ambient scribe for clinic note documentation during this visit. Visit time spent on chart review, interview, assessment, orders, documentation. Coding Level of Care Code Est Pt Level 4 (69162) Complex EM visit Add On G2211 Diagnoses Atherosclerotic cardiovascular disease I25.10 S/P cardiac cath Z98.890 S/P coronary artery stent placement Z95.5 Primary hypertension I10 Hypertension type: primary hypertension Dyslipidemia E78.5 Time Spent (min) 28
--- OUTSIDE RECORDS SUMMARY | 2025-03-06 10:20 | XMS_ITS | Patient Health Record ---
Author Organization [facility] Address [address] [place] [address] Care Team Providers Care Fittings Tightener Name Role Phone Mikhail Elena MD Primary Care Provider UnavailJohn Royal Unavailable [phone] Reason For Referral No Information Medications Medication SIG (Take, Route, Frequency, Duration) Notes Start Date End Date Status Colyte w Flavor Packs 240 GM as directed Orally as directed for 1 day(s) 10/03/2015 Active Simvastatin 20 MG 1 tablet in the even ing Orally Once a day Active Aspir-81 81 MG 1 tablet Orally Once a day Active Problems Problem Type SNOMED Code ICD Code Onset Dates Problem Status W/U Status Risk Notes Problem [id number] Encounter for screening for malignant neoplasm of colon (Z12.11) Active confirmed Problem Screening for malignant neoplasm of rectum ([id number]) Encounter for screening for malignant neoplasm of rectum (Z12.12) Active confirmed Problem [id number] Preprocedural examination (Z01.818) Active confirmed Problem [id number] Long-term use of aspirin therapy (Z79.82) Active confirmed Plan Of Treatment Future Test Test Name Order Date COLONOSCOPY 10/01/2015 Insurance Providers Payer Name Payer Address Payer Phone Subscriber Number Group Number Insured Name Patient Relationship to Insured Coverage Start Date Coverage End Date [facility] [address] [place] [address] [phone] [id number] LEAL Self - patient is the insured Medical (General) History Medical History History ICD Code Screening colonoscopy 2002--hyperplastic polyp, mild sigmoid diverticulosis, internal hemorrhoids Hyperlipidemia Hiatal hernia-asympromatic Denies PA,DM,CVA,Lung disease,renal dise ase Surgical History Surgery Date(Month/Year) Appendectomy Right eye surgery due to a work-related accident in 1980
== END 2025-03-06 10:10 | disposition home or self-care (01) ==
LOC: HO.HCS 09:49
PROVIDERS: PCP Nurse Practitioner Family; Visit Provider Nurse Practitioner Family
DX: I25.10 Atherosclerotic heart disease of native coronary artery without angina pectoris (principal); Z98.890 Other specified postprocedural states; Z95.5 Presence of coronary angioplasty implant and graft; I10 Essential (primary) hypertension; E78.5 Hyperlipidemia, unspecified
CPT/HCPCS: 99214; G2211

== ENCOUNTER → 2025-03-06 09:48 | Outpatient (BNVA) | payer MEDICARE, SELFPAY | PROVIDERS: PCP Nurse Practitioner Family; Visit Provider Nurse Practitioner Family | DX: I25.10 Atherosclerotic heart disease of native coronary artery without angina pectoris (principal); I10 Essential (primary) hypertension; E78.5 Hyperlipidemia, unspecified; Z95.5 Presence of coronary angioplasty implant and graft; Z98.890 Other specified postprocedural states | CPT/HCPCS: 99212 ==

== ENCOUNTER 2025-07-03 12:38 | Outpatient (AMB) | payer MEDICARE, SELFPAY ==
--- NOTE | 2025-07-03 13:02 | A.OFFVIS_ITS ---
Vital Signs 07/03/25 13:03 Height 5 ft 6 in Weight 176 lb 5.917 oz BMI 28.5 BP 140/70 H Blood Pressure Location Lt brachial Position Sitting Pulse 52 Intake Visit Reasons: 3m follow up Intake Note: 3 month follow-up with ekg feeling good Referral Agent Required: No Allergies No Known Allergies (No Known Allergies*) Allergy (Verified 11/06/24 10:29) Medication List - Last Reconciled 07/03/25 by Nica Brantley NP-C amlodipine-benazepril 5-20 mg 1 cap PO DAILY aspirin (Adult Low Dose Aspirin) 81 mg PO DAILY atorvastatin 80 mg PO BEDTIME ezetimibe 10 mg PO DAILY hydrochlorothiazide 12.5 mg PO DAILY Held on 11/06/24. Instructions: Doctor's Order metoprolol succinate ER 25 mg PO DAILY ticagrelor (Brilinta) 90 mg PO BID HPI HPI 3m follow up: Details: Nii is a 69-year-old male with past medical history of hypertension, hyperlipidemia, coronary artery disease with LAD stent placed 06/17/2024 who presents for follow-up. Today he reports he has been doing well since his last visit in March. He has not had any chest discomfort at rest or with activity. No shortness of breath, P ND, orthopnea or edema. No heart palpitations, lightheadedness, presyncope, syncope. He reports good activity tolerance. 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 This work is overhead requires him to reach overhead for a good part of the day. He has been experiencing some aching in his shoulders that he believes may be from the cholesterol medication. Not doing any exercise. Compliant with all medications. [facility], [facility] Medical History Encounter for routine adult health examination without abnormal findings Atherosclerotic cardiovascular disease BPH (benign prostatic hyperplasia) Dyslipidemia Surgical History S/P coronary artery stent placement Hx of appendectomy Family History Mother Cancer Father Heart problem Sister Heart problem Social History Housing: House Patient Tobacco Use Status: Never used Tobacco e-Cigarette/Vaping Use: Never Used Second Hand Smoke Exposure: Yes service: No Current occupational status: employed Current occupation: [employer] Current occupational exposures/hazards: Yes Cognitive needs: No Hearing needs: No Vision needs: No Review of Systems Const All systems reviewed & are unremarkable except as noted in HPI and below Denies chills, Denies fatigue, Denies fever(s), Denies frequent falls, Denies weakness, Denies weight gain and Denies weight loss ENT Denies dizziness Card Denies chest pain, Denies leg edema, Denies lightheadedness, Denies palpitations, Denies dyspnea, Denies dyspnea on exertion, Denies orthopnea and Denies other (loss of consciousness) Resp Denies cough, Denies dyspnea and Denies dyspnea on exertion GI Denies hematochezia and Denies change in stool character Musc Details: aching muscles in shoulders at night Denies abnormal gait, Denies muscle weakness, Denies numbness, Denies radiating pain into limb and Denies tingling Neuro Denies abnormal gait, Denies dizziness, Denies frequent falls, Denies numbness, Denies tingling and Denies weakness Endo Denies fatigue and Denies palpitations Physical Exam Vital Signs: BMI result Body Mass Index 28.5 Const General: cooperative, healthy appearing, comfortable and no acute distress Orientation/consciousness: patient oriented x3 Neck Neck: Yes normal visual inspection Resp Effort & Inspection: normal respiratory effort Auscultation: clear to auscultation bilaterally, no rales, no rhonchi and no wheezes Cardio Rate: regular rate Rhythm: regular rhythm Heart sounds: S1 normal heart sound present, S2 normal heart sound present, no murmurs and no rubs Neuro General: patient oriented x3 Extrem General: Yes normal to inspection, No no pedal edema and No calf tenderness Psych Appearance: grossly normal Mental Status: mental status grossly normal Speech and movement: Normal speech and movement present Office Procedures EKG Details: Today, read by me, sinus bradycardia with sinus arrythmia, nonspecific ST/ T wave abn inferiorly, V5-V6 with no significant change from prior EKG, rate 52, Qtc 405ms [id number], Complete Assessment & Plan Assessment & Plan (1) Atherosclerotic cardiovascular disease: Code(s): I25.10 - Atherosclerotic heart disease of [place] coronary artery without angina pectoris Category: Medical Plan: Cardiac testing for abnormal EKG eventually led to Cardiac catheterization 06/17/2024 showing proximal LAD 95% stenosis and JOAQUIN was placed. Condition stable with no anginal symptoms. EKG today sinus Ray with sinus arrhythmia and nonspecific ST abnormality which is unchanged from prior EKG. Continue aspirin indefinitely. Will have him stop Brilinta as it has been 1 year since his stent placement. Continue high-dose atorvastatin and Zetia with ideal LDL goal less than 70. He is due to update his labs, orders placed. Continue metoprolol, amlodipine/benazepril for good blood pressure control. Signs and symptoms of angina reviewed. Cardiology follow-up 6 months, sooner if needed. (2) S/P cardiac cath: Comment: 06/17/2024 showed left main normal, lad proximal 95% stenosis, left circumflex and RCA normal, ramus normal. JOAQUIN placed to the proximal LAD. Code(s): Z98.890 - Other specified postprocedural states Category: Surgical Plan: As above (3) S/P coronary artery stent placement: Comment: severe proximal LAD stenosis, 06/17/2024 -no significant disease elsewhere Code(s): Z95.5 - Presence of coronary angioplasty implant and graft Category: Surgical Plan: As above (4) HTN (hypertension): Code(s): I10 - Essential (primary) hypertension Category: Medical Qualifiers: Hypertension type: primary hypertension Qualified Code(s): I10 - Essential (primary) hypertension Plan: Blood pressure goal less than 130/80. Well controlled at this time. Continue metoprolol, amlodipine/benazepril. (5) Dyslipidemia: Code(s): E78.5 - Hyperlipidemia, unspecified Category: Medical Plan: LDL goal less than 70, ideally less than 55. Due to update labs. He is reporting aching in his shoulders. No other muscle aches elsewhere. If LDL was very well controlled then may be able to cut back statin to see if that helps his symptom. At present continue with high-dose atorvastatin and Zetia. Plan Time spent on chart review, documentation, interview and assessment Orders: Orders Complete Blood Count Auto Diff Today I10 - Essential (primary) hypertension, I25.10 - Atherosclerotic heart disease of [place] coronary artery without angina pectoris, Z95.5 - Presence of coronary angioplasty implant and graft Lipid Panel Today I10 - Essential (primary) hypertension, I25.10 - Atherosclerotic heart disease of [place] coronary artery without angina pectoris, Z95.5 - Presence of coronary angioplasty implant and graft Comprehensive Met. Panel Today I10 - Essential (primary) hypertension, I25.10 - Atherosclerotic heart disease of [place] coronary artery without angina pectoris, Z95.5 - Presence of coronary angioplasty implant and graft Coding Level of Care Code Est Pt Level 4 (87549) Complex EM visit Add On G2211 Diagnoses Atherosclerotic cardiovascular disease I25.10 S/P cardiac cath Z98.890 S/P coronary artery stent placement Z95.5 Primary hypertension I10 Hypertension type: primary hypertension Dyslipidemia E78.5 CPT Codes EKG - CPT: 86170-[id number], Complete ([id number]) Time Spent (min) 30
[2025-07-03 13:03] VITALS: BP 140/70; PULSE 52; BMI 28.5
--- OUTSIDE RECORDS SUMMARY | 2025-07-03 14:35 | XMS_ITS | Patient Health Record ---
Author Organization [facility] Address [address] [place] [id number] Care Team Providers Care Office Service Coordinator Name Role Phone Mikhail Elena MD Primary Care Provider UnavailJohn Royal Unavailable [phone] Reason For Referral No Information Medications Medication SIG (Take, Route, Frequency, Duration) Notes Start Date End Date Status Colyte w Flavor Packs 240 GM as directed Orally as directed; Duration: 1 day(s) 10/03/2015 Active Simvastatin 20 MG 1 tablet in the even ing Orally Once a day Active Aspir-81 81 MG 1 tablet Orally Once a day Active Problems Problem Type SNOMED Code ICD Code Onset Dates Problem Status W/U Status Risk Notes Problem Screening for malignant neoplasm of colon (889782109) Encounter for screening for malignant neoplasm of colon (Z12.11) Active confirmed Problem Screening for malignant neoplasm of rectum (212290733) Encounter for screening for malignant neoplasm of rectum (Z12.12) Active confirmed Problem Preprocedural examination (355118397747354) Preprocedural examination (Z01.818) Active confirmed Problem Long-term current use of antiplatelet drug (909694599646477) Long-term use of aspirin therapy (Z79.82) Active confirmed Plan Of Treatment Future Test Test Name Order Date COLONOSCOPY 10/01/2015 Insurance Providers Payer Name Payer Address Payer Phone Subscriber Number Group Number Insured Name Patient Relationship to Insured Coverage Start Date Coverage End Date O [employer] PROF[employer] CLAIMS [address] [place] [address] [id number] TAMAR LEAL Self - patient is the insured Medical (General) History Medical History History ICD Code Screening colonoscopy 2002--hyperplastic polyp, mild sigmoid diverticulosis, internal hemorrhoids Hyperlipidemia Hiatal hernia-asympromatic Denies MO,DM,CVA,Lung disease,renal dise ase Surgical History Surgery Date(Month/Year) Appendectomy Right eye surgery due to a work-related accident in 1980
== END 2025-07-03 13:25 | disposition home or self-care (01) ==
LOC: HO.HCS 12:39
PROVIDERS: PCP Nurse Practitioner Family; Visit Provider Nurse Practitioner Family
DX: I25.10 Atherosclerotic heart disease of native coronary artery without angina pectoris (principal); Z98.890 Other specified postprocedural states; Z95.5 Presence of coronary angioplasty implant and graft; I10 Essential (primary) hypertension; E78.5 Hyperlipidemia, unspecified
CPT/HCPCS: 93010; 99214; G2211

== ENCOUNTER → 2025-07-03 12:38 | Outpatient (BNVA) | payer MEDICARE, SELFPAY | PROVIDERS: PCP Nurse Practitioner Family; Visit Provider Nurse Practitioner Family | DX: I25.10 Atherosclerotic heart disease of native coronary artery without angina pectoris (principal); Z98.890 Other specified postprocedural states; Z95.5 Presence of coronary angioplasty implant and graft; I10 Essential (primary) hypertension; E78.5 Hyperlipidemia, unspecified; Z79.82 Long term (current) use of aspirin | CPT/HCPCS: 93005; 99212 ==

== ENCOUNTER 2025-07-10 08:40 | Outpatient (REF) | payer MEDICARE, SELFPAY ==
[2025-07-10 08:57] LABS: MANUAL DIFF FLAG NO
--- OUTSIDE RECORDS SUMMARY | 2025-07-10 09:00 | XMS_ITS | Patient Health Record ---
Author Organization [facility] Address [address] [place] [id number] Care Team Providers Care Underground Repairer Name Role Phone Mikhail Elena MD Primary Care Provider UnavailJohn Royal Unavailable [phone] Reason For Referral No Information Medications Medication [...] Problem Screening for malignant neoplasm of colon (753610975) Encounter for screening for malignant neoplasm of colon (Z12.11) Active confirmed Problem Screening for malignant neoplasm of rectum (697085862) Encounter for screening for malignant neoplasm of rectum (Z12.12) Active confirmed Problem Preprocedural examination (332748192943791) Preprocedural examination (Z01.818) Active confirmed Problem Long-term current use of antiplatelet drug (824164958157774) Long-term use of aspirin therapy (Z79.82) Active confirmed Plan Of Treatment Future Test Test Name Order Date COLONOSCOPY 10/01/2015 Insurance Providers Payer Name Payer Address Payer Phone Subscriber Number Group Number Insured Name Patient Relationship to Insured Coverage Start Date Coverage End Date O [employer] 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
[2025-07-10 09:36] LABS: Hematocrit 41.0 % (42.0-52.0); Hemoglobin 13.7 g/dl (14.0-18.0); Imm Gran Abs Auto 0.01 X10*3/uL (0.00-0.03); Imm Gran Pct Auto 0.1 % (0.0-0.4); Lymphocytes Absolute Auto 2.4 X10*3/uL (1.2-4.9); Mean Corpuscular HGB Conc 33.4 g/dl (31.0-36.0); Mean Corpuscular Hemoglobin 30.5 pg (27.0-33.0); Mean Corpuscular Volume 91.3 fL (80.0-98.0); NRBC Abs Auto 0.000 X10*3/uL (0.0-0.012); NRBC Pct Auto 0.0 /100WBC (0.0-0.2); Platelet Count 229 X10*3/uL (160-400); Red Blood Count 4.49 X10*6/uL (4.60-5.80); White Blood Count 7.2 X10*3/uL (4.8-10.8)
[2025-07-10 10:06] LABS: Alanine Aminotransferase 33 U/L (0-40); Albumin Level 4.4 g/dL (3.5-5.0); Alkaline Phosphatase 84 U/L (39-117); Anion Gap 11 (12-20); Aspartate Amino Transferase 31 U/L (5-37); Blood Urea Nitrogen 17 mg/dL (9-16); Calcium 9.4 mg/dL (8.4-10.2); Carbon Dioxide 25 mmol/L (22-29); Chloride 112 mmol/L (96-108); Cholesterol 92 mg/dL (<200); Estimated Glomerular Filt Rate > 60; HDL Cholesterol 35 mg/dL (>40); Potassium 4.5 mmol/L (3.3-5.1); Sodium 143 mmol/L (135-145); Total Protein 6.8 g/dL (6.5-8.0); Triglycerides 44 mg/dL (<150)
== END 2025-07-10 08:41 | disposition home or self-care (01) ==
LOC: HO.LAB 08:40
PROVIDERS: PCP Nurse Practitioner Family; Visit Provider Nurse Practitioner Family
DX: I25.10 Atherosclerotic heart disease of native coronary artery without angina pectoris (principal); I10 Essential (primary) hypertension; E11.9 Type 2 diabetes mellitus without complications; Z95.5 Presence of coronary angioplasty implant and graft
CPT/HCPCS: 36415; 80053; 80061; 85025

== ENCOUNTER 2025-07-20 14:43 | Outpatient (AMB) | payer MEDICARE, SELFPAY ==
--- NOTE | 2025-07-20 14:43 | A.OFFPC_ITS ---
Vital Signs 07/20/25 14:45 Weight 179 lb BP 150/70 H Blood Pressure Location Lt brachial Position Sitting Respiration 16 Pulse 52 Pulse Source Pulse Oximeter Pulse Oximetry (%) 97 Intake Visit Reasons: Annual PE Concrete Analyst Required: No Accompanied by: Self / Same As Patient Allergies No Known Allergies (No Known Allergies*) Allergy (Verified 11/06/24 10:29) Tobacco use date assessed: 07/20/25 Fall risk assessment: No Falls in past year Last assessed Fall Risk: 07/20/25 Dental Screening Dental Screen Date: 07/20/25 Did you have a dental visit in the last 12 months?: No Did you have a dental problem in the last 6 months where you did not have access to dental care?: No Was dental information given to patient?: Patient declined HPI Annual PE HPI Details History of Present Illness The patient is a 69-year-old male presenting for a physical exam. He has a history of benign prostatic hyperplasia and sees a bakery decorator on a regular basis. The patient believes he is due for a colon cancer screening and reports he has not had a colonoscopy in many years. He has a family history of colon cancer in his mother. slight anemia, will order more labs Health Maintenance - The patient is due for colon cancer [facility] and has not had a colonoscopy in many years. - A referral will be placed for a colono scopy. - Family history is positive for colon c ancer in his mother. 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 Review of Systems - Constitutional: Reports doing well. De nies fevers or chills. - Cardiovascular: Denies chest pain. - Respiratory: Denies shortness of breat h. - Gastrointestinal: Denies blood in stoo l, constipation, diarrhea, or abdominal pain. - Genitourinary: Denies testicular tende rness. - Psychiatric: Denies suicidal or homici grey ideation. Physical Exam General: Cooperative, healthy appearing, comfortable, no acute distress and well developed Orientation: Patient oriented x3 Limitations: No limitations Head: Normal to inspection Ears: Hearing grossly normal bilaterally Nose: Normal external nose present Face and sinus: Normal facial exam Eyes: Appearance normal, both eyes and all related structures Neck: Normal visual inspection and Yes full ROM Respiratory: Normal respiratory effort and able to speak in complete sentences. Clear to auscultation bilaterally Cardiovascular: Regular rate and rhythm. Normal S1 and S2 GI: Normal to inspection. Soft to palpation and nontender : Enlarged right testicle, No hernias appreciated Skin: No rashes or lesions noted Neuro: Patient oriented x3 Extremities: Normal to inspection Results Plan 1. Colon Cancer Screening The patient has a family history of colon cancer and believes he is due for screening, as he has not had a colonoscopy in many years. A referral for a colonoscopy will be placed. 2. Hydrocele The patient has an enlarged right scrotum, suspected to be a hydrocele. A testicular/scrotal ultrasound will be ordered for further evaluation. 3. BP elevated: will have him send me juanito jaimes from home Discussion Notes I discussed with the patient that his colon screening is due, especially given his family history of colon cancer, and informed him that I will place a referral for a colonoscopy. I also addressed the finding of an enlarged right testicle, which is likely a hydrocele, and explained that I will order an ultrasound to investigate further. Patient Instructions - We are referring you for a colonoscopy for colon cancer screening, as it has been many years since your last one. - We will order an ultrasound of your ri ght testicle to look into the cause of the enlargement. [facility] Medical History Encounter for routine adult health examination without abnormal findings Atherosclerotic cardiovascular disease BPH (benign prostatic hyperplasia) Dyslipidemia Surgical History S/P coronary artery stent placement Hx of appendectomy Family History Mother Cancer Father Heart problem Sister Heart problem Social History Housing: House Patient Tobacco Use Status: Never used Tobacco e-Cigarette/Vaping Use: Never Used Second Hand Smoke Exposure: Yes service: No Current occupational status: employed Current occupation: [employer] Current occupational exposures/hazards: Yes Cognitive needs: No Hearing needs: No Vision needs: No Questionnaire Thrive Questionnaire Date Thrive assessed: 10/08/23 JAY-7 AMB Questionnaire JAY-7 Date JAY - 7 assessed: 10/08/23 Source: Developed by Drs. John Major, Sue Villagomez, Sang Barry and colleagues, with an educational lorena from [employer]. Physical exam (Primary Care) Vital Signs: Last Vital Signs Pulse 52 07/20/25 14:45 Resp 16 07/20/25 14:45 BP 150/70 H 07/20/25 14:45 Pulse Ox 97 07/20/25 14:45 Tobacco/Smoking Status: Tobacco use Status Tobacco use date assessed 07/20/25 07/20/25 14:46 Patient Tobacco Use Status Never used Tobacco 07/20/25 14:44 e-Cigarette/Vaping Use Never Used 07/20/25 14:44 Thrive Assessment: Date of Thrive Assessment Date Thrive assessed 10/08/23 07/20/25 14:44 Immunizations pneumoc 20-tracey conj-dip cr(PF) 0.5 mL IM syringe Performing Provider: SHELTON Ch Performing Location: [facility] Administered by: Nguyen Ovalles MA on 07/20/25 15:22 Dose Route Admin Location Dispensed Lot Number Expiration Date [facility] Marketing Performance Analyst 0.5 mL IM Right Deltoid 0.5 mL [id number] 05/11/26 [employer] Total Dispensed Waste 0.5 mL 0 % VIS Given Date VIS Provided VIS Publication Date 07/20/25 Single Vaccine 25 Eligibility Eligibility Date Funding Source Not [facility] Eligible 07/20/25 Private Coding Level of Care Code Est Pt Level 3 (74361) Est Pt Prev Care >65y(18778) Diagnoses Screening for colon cancer Z12.11 Family hx of colon cancer Z80.0 Anemia D64.9 Screening PSA (prostate specific antigen) Z12.5 Encounter for routine adult health examination without abnormal findings Z00.00 Enlarged testicle N50.89 Assessment & Plan Assessment & Plan (1) Screening for colon cancer: Code(s): Z12.11 - Encounter for screening for malignant neoplasm of colon Category: Medical (2) Family hx of colon cancer: Code(s): Z80.0 - Family history of malignant neoplasm of digestive organs Category: Medical (3) Anemia: Code(s): D64.9 - Anemia, unspecified Category: Medical (4) Screening PSA (prostate specific antigen): Code(s): Z12.5 - Encounter for screening for malignant neoplasm of prostate Category: Medical (5) Encounter for routine adult health examination without abnormal findings: Code(s): Z00.00 - Encounter for general adult medical examination without abnormal findings Category: Medical (6) Enlarged testicle: Code(s): N50.89 - Other specified disorders of the male genital organs Category: Medical Plan . Orders: Orders IRON PROFILE Today D64.9 - Anemia, unspecified Vitamin B12 and Folate Today D64.9 - Anemia, unspecified Comprehensive Met. Panel Today D64.9 - Anemia, unspecified Pneumococcal 20 Immunization Today Z23 - Encounter for immunization Complete Blood Count Auto Diff Today D64.9 - Anemia, unspecified Reticulocyte Count Today D64.9 - Anemia, unspecified Ferritin Today D64.9 - Anemia, unspecified TSH reflex Free T4 Today D64.9 - Anemia, unspecified Prostate Specific Antigen Scr Today Z12.5 - Encounter for screening for malignant neoplasm of prostate UA CC w/rflx Micro + Cult Today Z00.00 - Encounter for general adult medical examination without abnormal findings US scrotum Today N50.89 - Other specified disorders of the male genital organs Referrals Gastroenterology Referral Z12.11 - Encounter for screening for malignant neoplasm of colon, Z80.0 - Family history of malignant neoplasm of digestive organs
[2025-07-20 14:45] VITALS: BP 150/70; PULSE 52; RESP 16; O2SAT 97
== END 2025-07-20 15:31 | disposition home or self-care (01) ==
LOC: HO.HMCC 14:43
PROVIDERS: PCP Nurse Practitioner Family; Visit Provider Nurse Practitioner Family
DX: Z00.00 Encounter for general adult medical examination without abnormal findings (principal); D64.9 Anemia, unspecified; N50.89 Other specified disorders of the male genital organs; Z12.11 Encounter for screening for malignant neoplasm of colon; Z80.0 Family history of malignant neoplasm of digestive organs; Z12.5 Encounter for screening for malignant neoplasm of prostate; Z23 Encounter for immunization

== ENCOUNTER → 2025-07-20 14:43 | Outpatient (BNVA) | payer MEDICARE, SELFPAY | PROVIDERS: PCP Nurse Practitioner Family; Visit Provider Nurse Practitioner Family | DX: Z00.00 Encounter for general adult medical examination without abnormal findings (principal); N50.89 Other specified disorders of the male genital organs; Z80.0 Family history of malignant neoplasm of digestive organs; D64.9 Anemia, unspecified; Z23 Encounter for immunization | CPT/HCPCS: 90471; 90677; 99212; 99397 ==

== ENCOUNTER 2025-09-08 13:44 | Outpatient (REF) | payer MEDICARE, SELFPAY ==
--- NOTE | ~2025-09-08 | US_ITS ---
EXAMINATION: US SCROTUM HISTORY: N50.89 - Other specified disorders of the male genital organs. COMPARISON: There are no prior studies available for comparison. FINDINGS: Real-time grayscale ultrasound imaging of the scrotum was performed. RIGHT TESTICLE: The right testis measures 3.7 x 2.5 x 3.4 cm and demonstrates normal homogeneous echotexture. There is dilatation of the testes. No masses are seen. The right testis demonstrates normal color Doppler flow. RIGHT EPIDIDYMIS: The right epididymal body and tail are not well visualized. There is a 3 mm epididymal head cyst. LEFT TESTICLE: The left testis measures 3.3 x 2.0 x 3.1 cm and demonstrates normal homogeneous echotexture. There is dilatation of the rete testes. There is a 4 mm testicular cyst. No solid mass is identified. The left testis demonstrates normal color Doppler flow. LEFT EPIDIDYMIS: Normal in size, shape, and vascularity. There is a 1.4 cm cyst of the epididymal head. VARICOCELE: There is a small left varicocele. HYDROCELE: There is a large right hydrocele and a small left hydrocele. OTHER COMMENTS: None. US/US scrotum IMPRESSION: 1. Large right hydrocele and small left hydrocele. 2. Bilateral epididymal head cysts as described. 3. Small left varicocele. Electronically signed by: John Crow MD 09/08/2025 02:48 PM [facility]
--- OUTSIDE RECORDS SUMMARY | 2025-09-08 17:34 | XMS_ITS | Patient Health Record ---
Author Organization [facility] Address [address] [place] [address] Care Team Providers Care Orthopedic Physician Name Role Phone Mikhail Elena MD Primary Care Provider Unavailab John Krishna Unavailable [phone] Reason For Referral No Information Medications Medication SIG (Take, Route, Frequency, Duration) Notes Start Date End Date Status Colyte w Flavor Packs 240 GM Solution Reconstituted as directed Orally as directed; Duration: 1 day(s) 10/03/2015 Active Simvastatin 20 MG Tablet 1 tablet in the evening Orally Once a day Active Aspir-81 81 MG Tablet Delayed Release 1 tablet Orally Once a day Active Social History Social History Additional Details Category Social Info Options Details Miscellaneous: Marital status: 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[employer] Section Notes: Nonsmoker; no alcohol Problems Problem Type SNOMED Code ICD Code Onset Dates Problem Status W/U Status Risk Notes Problem Screening for malignant neoplasm of colon (510211034) Encounter for screening for malignant neoplasm of colon (Z12.11) Active confirmed Problem Screening for malignant neoplasm of rectum (427070499) Encounter for screening for malignant neoplasm of rectum (Z12.12) Active confirmed Problem Preprocedural examination (026820628341752) Preprocedural examination (Z01.818) Active confirmed Problem Long-term current use of antiplatelet drug (561087868580651) Long-term use of aspirin therapy (Z79.82) Active confirmed Plan Of Treatment Future Test Test Name Order Date COLONOSCOPY 10/01/2015 Insurance Providers Payer Name Payer Address Payer Phone Subscriber Number Group Number Insured Name Patient Relationship to Insured Coverage Start Date Coverage End Date [facility] [address] [place] [address] [phone] [id number] TAMAR LEAL Self - patient is the insured Medical (General) History Medical History History ICD Code Screening colonoscopy 2002--hyperplastic polyp, mild sigmoid diverticulosis, internal hemorrhoids Hyperlipidemia Hiatal hernia-asympromatic Denies DC,DM,CVA,Lung disease,renal dise ase Surgical History Surgery Date(Month/Year) Appendectomy Right eye surgery due to a work-related accident in 1980
== END 2025-09-08 13:45 ==
LOC: HO.HMGCX 13:44
PROVIDERS: PCP Nurse Practitioner Family; Visit Provider Nurse Practitioner Family
DX: N50.89 Other specified disorders of the male genital organs (principal)
CPT/HCPCS: 76870

== ENCOUNTER → 2025-09-08 13:57 | Outpatient (BNV) | payer MEDICARE, SELFPAY | PROVIDERS: PCP Nurse Practitioner Family; Visit Provider Radiology Diagnostic Radiology | DX: N50.3 Cyst of epididymis (principal); N43.2 Other hydrocele; I86.1 Scrotal varices | CPT/HCPCS: 76870 ==